=== PATIENT | female | born 1980 | race Caucasian/White ===

== ENCOUNTER 2018-03-01 10:30 | Emergency (ER) | payer OTHER ==
[2018-03-01 11:49] VITALS: BP 136/76
--- NOTE | 2018-03-01 12:22 | UC ---
Lower Extremity/Ankle HPI - HPI Summary HPI Summary: stubbed L 5th toe on shopping cart last tha, small cut on toe, no bruising, no trouble walking. needs Td vacc - History of Current Complaint Chief Complaint: UCLaceration Stated Complaint: CUT R PINK TOE Time Seen by Provider: 03/01/18 12:13 Hx Obtained From: Patient Hx Last Menstrual Period: February 2998 ?: No Onset/Duration: Sudden Onset Severity Initially: Moderate Severity Currently: Moderate Pain Intensity: 6 Aggravating Factor(s): Nothing Alleviating Factor(s): Nothing Able to Bear Weight: Yes - Allergies/Home Medications Allergies/Adverse Reactions: Allergies Allergy/AdvReac Type Severity Reaction Status Date / Time adhesive tape Allergy Intermediate Blisters Verified 03/01/18 11:51 amoxicillin Allergy Intermediate Hives Verified 03/01/18 11:51 cephalexin [From Keflex] Allergy Intermediate Hives Verified 03/01/18 11:51 hydromorphone Allergy Intermediate vomitting Verified 03/01/18 11:51 ibuprofen Allergy Intermediate migrains Verified 03/01/18 11:51 NSAIDS (Non-Steroidal Allergy Intermediate fatty liver Verified 03/01/18 11:51 Anti-Inflamma vancomycin Allergy Intermediate Hives Verified 03/01/18 11:51 Adhesive Tape Allergy Blisters Verified 07/09/16 10:09 Home Medications: Home Medications Dicyclomine CAP* [Bentyl CAP*] 10 mg PO TID PRN 03/01/18 [History Confirmed ] Divalproex Sodium [Depakote ER] 500 mg PO DAILY WITH MEAL 03/01/18 [History Confirmed 03/01/18] Folic Acid TAB* [Folvite TAB*] 1 mg PO DAILY 03/01/18 [History Confirmed ] Lurasidone(*) [Latuda] 20 mg PO DAILY 03/01/18 [History Confirmed 03/01/18] Methotrexate [Xatmep] 2.5 mg PO DAILY WITH MEAL 03/01/18 [History Confirmed ] Pedi Multivit 158/Iron/Vit K1 [Cerovite Jr Tablet Chew] 1 each PO DAILY WITH MEAL 03/01/18 [History Confirmed 03/01/18] Pyrithione Zinc [Zinc Pyrithione] 03/01/18 [History Confirmed 03/01/18] Sucralfate TAB* [Carafate*] 1 gm PO BID 03/01/18 [History Confirmed 03/01/18] metroNIDAZOLE [Metronidazole 0.75 % gel] 1 applic TOPICAL BID 03/01/18 [History Confirmed 03/01/18] PMH/Surg Hx/FS Hx/Imm Hx Previously Healthy: Yes GI/ History: Gastroesophageal Reflux Neurological History: Migraine - Surgical History Surgical History: Yes Surgery Procedure, Year, and Place: HYSTERECTOMY. SINUS. Rt BREAST BIOPSY - BENIGN. CHOLECYSTECTOMY. TUBAL LIGATION/UTERINE ABLASION PRIOR TO HYSTERECTOMY. bilateral hip replacement. sinus surgery - Family History Known Family History: Positive: Hypertension, Diabetes - Social History Occupation: Disabled Lives: With Family Alcohol Use: None Substance Use Type: None Smoking Status (MU): Former Smoker Type: Cigarettes Amount Used/How Often: Every couple weeks-months Household Exposure Type: Cigarettes - Immunization History Most Recent Influenza Vaccination: August 2015 Most Recent Tetanus Shot: 2006 Most Recent Pneumonia Vaccination: Unsure Review of Systems Constitutional: Negative Respiratory: Negative Cardiovascular: Negative Musculoskeletal: Negative Neurological: Negative Psychological: Negative All Other Systems Reviewed And Are Negative: Yes Physical Exam Triage Information Reviewed: Yes Appearance: Well-Appearing, Well-Nourished, Obese Vital Signs: Initial Vital Signs Temp 98.2 F 03/01/18 11:44 Pulse 76 03/01/18 11:44 Resp 20 03/01/18 11:44 BP 136/76 03/01/18 11:44 Pulse Ox 98 03/01/18 11:44 Vital Signs Reviewed: Yes Respiratory Exam: Normal Cardiovascular Exam: Normal Musculoskeletal Exam: Normal Musculoskeletal: Positive: Strength Intact, ROM Intact Neurological Exam: Normal Psychological Exam: Normal Skin Exam: Other - 4mm superficial lac distal L 5th toe, no bleeding, no bruising Lower Extremity Course/Dx - Differential Dx/Diagnosis Differential Diagnosis/HQI/PQRI: Contusion, Other - laceration Provider Diagnoses: small laceration L 5th toe Discharge - Sign-Out/Discharge Documenting (check all that apply): Patient Departure - Discharge Plan Condition: Good Disposition: HOME Patient Education Materials: Diphtheria/Pertussis/Tetanus Vaccine (By injection ), Laceration (DC) Referrals: Abdullahi Loaiza MD [Primary Care Provider] - 2 Days (if no better) Additional Instructions: ice and elevate foot. keep wound clean and dry and report signs of infection - Billing Disposition and Condition Condition: GOOD Disposition: Home
[2018-03-01] MEDS ORDERED: Tetan/Diph/Pertus SYR(Tdap)* 0.5 ML SYR(BOOSTRIX) use SYR IM ONE (12:26)
== END 2018-03-01 12:46 | disposition home or self-care (01) ==
LOC: UCEAST 10:30
DX: S91.115A Laceration without foreign body of left lesser toe(s) without damage to nail, initial encounter (principal); W22.8XXA Striking against or struck by other objects, initial encounter; Y93.89 Activity, other specified; Y92.9 Unspecified place or not applicable; Z88.6 Allergy status to analgesic agent; Z88.1 Allergy status to other antibiotic agents; Z88.5 Allergy status to narcotic agent; Z88.0 Allergy status to penicillin; Z87.891 Personal history of nicotine dependence
CPT/HCPCS: 90715; 99212; G0463

== ENCOUNTER 2018-04-07 16:53 | Emergency (ER) | payer OTHER ==
--- OUTSIDE RECORDS SUMMARY | 2018-04-07 16:59 | XMS REPORT ---
:1980 External Reference #:[id number] Author Organization [facility] Address [address] [address] [place] [address] Phone [phone] Care Team Providers Name Role Phone Abdullahi Loaiza MD Primary Care Physician Unavailable Payers Type Date Identification Numbers Payment Provider Subscriber Commercial Effective: Policy Number: [id number] Hayden Felicia Loyola 2016 Group Number: [id number] [address] PayID: [id number] [place] [address] Medigap Part B Expires: 2015 Policy Number: BS Facets Felicia Loyola [id number] PayID: [id number] [address] [address] [place] [address] Medigap Part B Effective: 2015 Policy Number: [id number] Medicaid Felicia Loyola Expires: 2016 Group Name: 1 1 [address] PayID: [id number] [place] [address] Workers Compensation Onset: 2015 Policy Number: Justo Felicia Loyola [id number] PayID: [id number] [address] [address] [place] [address] Problems Date Description Provider Status Onset: 02/03/2015 Seizure Valdez Bailey MD Active Onset: 02/03/2015 Bipolar disorder Valdez Bailey MD Active Onset: 03/01/2015 Refractory epilepsy Valdez Bailey MD Active Onset: 05/24/2015 Migraine without aura, not refractory Valdez Bailey MD Active Onset: 05/24/2015 Dissociative convulsions Valdez Bailey MD Active Onset: 02/13/2017 Neck pain Valdez Bailey MD Active Onset: 10/14/2016 Epilepsy, not refractory Valdez Bailey MD Active Onset: 07/08/2016 Localized, 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 Family History Date Family Member(s) Problem(s) Comments General Arthritis General maternal aunt and Mom have arthritis General son of cerebral palsy General cousin with lupus, cousin with Ra Social History Type Date Description Comments ETOH Use Denies alcohol use Smoking Patient is a former smoker Exercise Type/Frequency Exercises rarely Allergies, Adverse Reactions, Alerts Date Description Reaction Status Severity Comments 01/09/2015 Keflex Rash active Moderate to Severe 01/09/2015 Vancomycin Rash active Moderate to Severe 01/09/2015 Augmentin Rash active Moderate to Severe 01/09/2015 Ibuprofen Migraines active Moderate to Severe 01/09/2015 Adhesives Blisters active Moderate to Severe 01/09/2015 Dilaudid Nausea and Vomiting active 09/21/2015 Amoxicillin active hives 02/13/2017 NSAIDS active Medications Medication Date Status Form Strength Qnty SIG Indications Ordering Provider Cyclobenzaprine 03/09 Active Tablets 5mg take one Valdez tablet by darci Bailey MD 8 hours prn. may take a second tablet if first not effetive. Methotrexate 10/07 Active Tablets 2.5mg 72tab 6 tbs by M06.4 s mouth every , joon [employer] Depakote ER 09/08 Active Tablets ER 500mg 60tab 2 by mouth G43.009 24HR s at night MD Leo Folic Acid 01/10 Active Tablets 1mg 90tab 1 by mouth Z79.899 ofi s every day DAMI Leyva Vitamin D3 High 07/17 Active Capsules 1000Unit 180ca 2 by mouth E55.9 ps every day Jon Carty Cane 07/08 Active Misc 1unit medically M25.552 erin necessary - gunnar Hernandez hip oa Jon use as needed for ambulation Wrist Splint 03/14 Active Misc 2unit use daily G56.00 s to help marlon Carty M.D. numbness and tingling in the right and left hand Knee Brace 02/18 Active Misc 2unit use daily M70.52 s to help Machelle stabilize M.D. the knee (Please custom fit) Wrist Brace 12/05 Active Misc 2unit use for the G56.00 s right and Machelle, left wrist M.D. bilaterally at night for probable carpal tunnel syndrome Stocking 11/19 Active Misc apply to Dipak Applic /2015 help edema Machelle, Regular M.D. Lamotrigine ER Active Tablets ER 150mg 1/2 tab po Unknown 24HR qhs Albuterol Active Nebulizer (2.5mg/3M 1 vial via Unknown Sulfate L) 0.083% nebulizer 4 times daily as needed Trazodone HCL Active Tablets 50mg 2-3 tablet Unknown at bedtime as needed Estropipate Active Tablets 1.5mg 1 by mouth Unknown every day Bupropion HCL ER Active Tablets ER 300mg 1 by mouth Unknown (XL) 24HR every day Sumatriptan Active Tablets 100mg prn Wilver Succinate /0000 headaches , NAZIA Watts Advair Diskus Active Aerosol 100/50 1 Unknown / inhalation twice daily Ondansetron Active Tablets 4mg dissolve Unknown Dispers one tablet orally every 8 hours as needed for nausea. Lorazepam Active Tablets 0.5mg prn Unknown / Oxycodone-Acetam Active Tablets 5-325mg 1-2 tabs by Unknown inophen /0000 mouth every 4-6 hours as needed for pain Oyster Shell Active Tablets 500-400mg 180ta take one Zsofia Calcium + D3 0000 -Unit bs tablet by Gordon, mouth twice [employer] a day Acetaminophen Active Tablets 500mg 1-2 tabs 3x Unknown /0000 a day as needed Benzonatate Active Capsules 200mg one by Unknown /0000 mouth three times daily as needed for cough Metoprolol Active Tablets 25mg 1 by mouth Unknown Tartrate twice a day prn Sucralfate Active Tablets 1gm 1 by mouth Unknown /0000 two times a day Dicyclomine HCL Active Capsules 10mg one capsule Unknown / 3 times daily Latuda Active Tablets 20mg 1 by mouth Unknown /0000 every day Metronidazole Active Cream 0.75% apply two Unknown / times a day as needed for facial rash Cerovite Active Tablets Uriel, Lorna Formula / MD Lesly Gabapentin Active Capsules 300mg 1 by mouth Unknown 2X times a day Depakote 04/[address] 125mg 3 tabs in in the Leo, - morning and MD 04/07 4 tabs at Depakote ER 04/07 Hx Tablets ER 250mg 90tab take 3 G43.009 24HR s tablets by Leo, - mouth every MD 09/08 night. /2017 Methotrexate 03/11 Hx Tablets 2.5mg 30tab 4 tbs by M06.4 Zsofi s mouth every Gordon, - week [employer] 10/07 Depakote ER 02/26 Hx Tablets ER 250mg 90tab Take 3 24HR s tablets by Leo, - mouth every MD 04/07 night. /2016 Methotrexate 01/10 Hx Tablets 2.5mg 48tab 4 tbs by M06.4 Zsofia s mouth every Gordon, - week [employer] 03/11 Calcium Oyster 10/14 Hx Tablets 1250(500C 60tab 2 tabs po q Zsofia a) mg s day Gordon, - [employer] 01/10 Acetaminophen-Co 06/25 Hx Tablets 300-30mg 14tab 1 tab by M25.552 Zsofia deine #3 s mouth two Gordon, - times a day [employer] 10/14 as needed for pain Duloxetine HCL 04/[address] 30mg 30cap 1 by mouth Part s every day Machelle, - M.D. 05/02 Naltrexone HCL 04/08 Hx Powder 90uni 4.5 mg M79.7 ts compounded Machelle, - in capsules M.D. 04/22 by mouth every day Budesonide 03/06 Hx Suspension 1mg/2ML 6ml Use in J39.8 Zsofi nebulizer Gordon, - 2x daily [employer] 03/06 for 3 days Mucinex 03/06 Hx Tablets ER 600mg 30tab 1 tab po J39.8 12HR s bid Gordon, - [employer] 04/22 Calcium 500+D3 03/06 Hx Tablets 500-400mg 180ta 1 tab by E55.9 -Unit bs mouth twice Gordon, - a day [employer] 03/11 Pulmicort 03/06 Hx Aerosol 90mcg/Act 1unit 2 puff J39.8 s twice a day Machelle, - M.D. 04/22 Humira Pen 01/21 Hx PNKT 40mg/0.8M 4unit inject 40 M06.4 L s mg Gordon, - subcutaneou [employer] 09/06 sly every week Levsin 01/01 Hx Tablets 0.125mg 42tab Apply 1 SL M06.4 s every 8 Machelle, - hours as M.D. 01/01 needed GI spasms Levsin/SL 01/01 Hx Tablets Sub 0.125mg 60tab 1 tablet sl M06.4 s every 8 Machelle, - hours as M.D. 04/22 Sulfasalazine 11/16 Hx Tablets 500mg 90tab Take two M06.4 s tabs twice Machelle, - daily M.D. 01/21 Tizanidine HCL 11/05 Hx Capsules 2mg 60cap 1 cap by M79.7 s mouth twice Machelle, - a day M.D. 09/06 To Whom It May 11/05 Hx Due to a R60.0 Dipak Concern medical Machelle, - condition, M.D. 01/01 please allow Ms. Loyola to be off of work for the next 3 months Plaquenil 10/04 Hx Tablets 200mg 60tab 2 po at hs M06.4 s Machelle, - M.D. 11/16 Nabumetone 10/02 Hx Tablets 500mg 30tab Take one s capsule/tab Machelle, - let by M.D. 10/04 mouth twice daily as needed for pain, please stop Diclofenac and avoid other NSAIDs Ergocalciferol 09/27 Hx Capsules [id number] 14cap Take 1 s capsule by Machelle, - mouth once M.D. 12/05 Cyanocobalamin 09/27 Hx Solution 1000mcg/M 75ml inject 1 L milliliters Machelle, - (1000mcg) M.D. 07/17 Im once weekly; please provide appropriate needle and syringes for injection Diclofenac 09/[address] 75mg 30tab take one s capsule/tab Machelle - let by M.D. 10/02 mouth twice daily as needed for pain, avoid other nsaids Wellbutrin XL Hx Tablets ER 300mg 1 by mouth Unknown /0000 24HR every day - 01/[address] 60mg 2 by mouth Unknown /0000 Part every day - 12/31 Lamotrigine Hx Tablets 100mg 1 by mouth Unknown /0000 every day - 01/[address] 40mg 1 by mouth Unknown /0000 twiceevery - day 09/08 Estrogen 00 Hx 1.5mg 1 tab po Unknown /0000 daily - 11/05 Robaxin Hx Tablets 500mg 1 tab po Unknown /0000 tid prn - 09/21 Oxcarbazepine Hx Tablets 150mg 150ta 3 by mouth Valdez /0000 bs in am and 4 Leo, - in pm 05/11 Tramadol HCL 00 Hx Tablets 50mg 1 tab po Unknown /0000 tid prn - 01/09 Topiramate 00 Hx Tablets 100mg 1 by mouth Unknown /0000 daily - 03/01 [address]alta [address] 30mg 1 by mouth Unknown /0000 Part every day - in addition 11/05 ot 60mg /2015 Topiramate 00 Hx Caps 25mg 2 tabs po Unknown /0000 Sprinkle bid - 09/21 Celebrex Hx Capsules 200mg 1 by mouth Unknown /0000 every day - 11/30 Excedrin 00 Hx Tablets 250-250-6 po as Unknown Migraine /0000 5mg needed - 11/05 Albuterol 00/ Hx Powder puff every Unknown Sulfate /0000 6 hours as - needed 04/22 Celecoxib 00 Hx Capsules 200mg once daily Unknown /0000 - 09/27 Clonazepam 00/00 Hx Tablets 0.5mg 1 by mouth Unknown /0000 bid prn - 06/25 Oxycodone-Acetam 00 Hx Tablets 10-325mg take 1 Unknown inophen /0000 tablet by - mouth every 10/04 to hours as needed for pain Lyrica 00 Hx Capsules 75mg 1 by mouth Unknown /0000 twice a day - 12/05 Rizatriptan 00 Hx Tablets 10mg 1 by mouth Unknown Benzoate /0000 twice a day - as needed 10/11 max 2 days a week Sennosides-Docus 00 Hx Tablets 8.6-50mg 1 by mouth Unknown ate Sodium /0000 twice a day - 04/22 Vitamin D 00 Hx Tablets 1000Unit by mouth Unknown /0000 everyday - 11/05 Suboxone Hx Film 4-1mg bid managed Unknown /[address] Kelley - 01/01 Duloxetine HCL Hx Caps DR 20mg 20 mg day M79.7 Unknown /0000 Part - 10/11 Triamterene/Hydr Hx Capsules 37.5-25mg 1 by mouth Unknown ochlorothiazide /0000 every day - 12/05 Furosemide Hx Tablets 40mg 1 by mouth Unknown /0000 every day - 04/22 Nicotine Lozenge Hx use as Unknown /0000 directed - for smoking 10/11 Cyclobenzaprine 00 Hx Tablets 10mg one tablet Unknown HCL /0000 q hs - 03/09 Metoprolol 00 Hx Tablets 25mg 1 by mouth Unknown Tartrate /0000 twice a day - prn 04/06 Zinc 00/00 Hx Lozenges 23mg Unknown /0000 - 10/07 Ciprofloxacin 00/00 Hx Tablets 100mg Unknown HCL /0000 - 03/08 Medications Administered in Office Medication Date Status Form Strength Qnty SIG Indications Ordering Provider Triamcinolone 05/02/ Administered Injection Dipak WaldropKenalog) 2015 Jon Carty Triamcinolone 05/02/ Administered Injection Dipak (Kenalog) 2015 Jon Carty Triamcinolone 01/21/ Administered Injection Dipak (Kenalog) 2015 Jon Carty Immunizations CPT Code Status Date Vaccine Lot # [id number] Given 06/13/2017 Influenza Virus Vaccine, Quadrivalent, Split, [id number] Preservative Free Vital Signs Date Vital Result Comment 03/10/2018 Height 63 inches 5'3" Weight 222.12 lb Heart Rate 92 /min BP Systolic Sitting 118 mmHg BP Diastolic Sitting 76 mmHg Pain Level 6 O2 % BldC Oximetry 98 % BMI (Body Mass Index) 39.3 kg/m2 03/09/2018 Height 63 inches 5'3" Weight 218.00 lb Heart Rate 68 /min BP Systolic 120 mmHg BP Diastolic 64 mmHg BMI (Body Mass Index) 38.6 kg/m2 12/09/2017 Height 63 inches 5'3" Weight 232.00 lb Heart Rate 93 /min BP Systolic Sitting 118 mmHg BP Diastolic Sitting 72 mmHg Pain Level 7 O2 % BldC Oximetry 98 % BMI (Body Mass Index) 41.1 kg/m2 10/07/2017 Height 63 inches 5'3" Weight 230.00 lb Heart Rate 84 /min BP Systolic Sitting 120 mmHg BP Diastolic Sitting 64 mmHg Respiratory Rate 14 /min Pain Level 7 BMI (Body Mass Index) 40.7 kg/m2 09/08/2017 Height 63 inches 5'3" Weight 230.00 lb Heart Rate 78 /min BP Systolic Sitting 120 mmHg BP Diastolic Sitting 80 mmHg BMI (Body Mass Index) 40.7 kg/m2 06/13/2017 Weight 224.50 lb Heart Rate 100 /min BP Systolic Sitting 110 mmHg BP Diastolic Sitting 90 mmHg O2 % BldC Oximetry 99 % 04/07/2017 Height 63 inches 5'3" Weight 234.12 lb Heart Rate 64 /min BP Systolic 134 mmHg BP Diastolic 62 mmHg BMI (Body Mass Index) 41.5 kg/m2 03/11/2017 Height 63 inches 5'3" Weight 236.25 lb Heart Rate 109 /min BP Systolic Sitting 130 mmHg BP Diastolic Sitting 78 mmHg Body Temperature 97.5 F Pain Level 8 BMI (Body Mass Index) 41.8 kg/m2 02/13/2017 Height 63 inches 5'3" Weight 238.00 lb Heart Rate 86 /min BP Systolic 122 mmHg BP Diastolic 80 mmHg BMI (Body Mass Index) 42.2 kg/m2 01/10/2017 Height 63 inches 5'3" Weight 239.00 lb Heart Rate 86 /min BP Systolic Sitting 120 mmHg BP Diastolic Sitting 70 mmHg Respiratory Rate 14 /min Pain Level 7 BMI (Body Mass Index) 42.3 kg/m2 10/14/2016 Height 63 inches 5'3" Weight 249.00 lb Heart Rate 88 /min BP Systolic Sitting 130 mmHg BP Diastolic Sitting 90 mmHg BMI (Body Mass Index) 44.1 kg/m2 10/11/2016 Height 63 inches 5'3" Weight 244.00 lb Heart Rate 91 /min BP Systolic Sitting 130 mmHg BP Diastolic Sitting 81 mmHg Respiratory Rate 14 /min Body Temperature 97.0 F Pain Level 10 BMI (Body Mass Index) 43.2 kg/m2 09/06/2016 Height 63 inches 5'3" Weight 244.00 lb Heart Rate 96 /min BP Systolic Sitting 120 mmHg BP Diastolic Sitting 80 mmHg Respiratory Rate 14 /min Body Temperature 97.1 F Pain Level 9 BMI (Body Mass Index) 43.2 kg/m2 07/19/2016 Height 63 inches 5'3" Weight 240.38 lb Heart Rate 100 /min BP Systolic Sitting 140 mmHg BP Diastolic Sitting 94 mmHg Respiratory Rate 14 /min Body Temperature 96.5 F Pain Level 10 BMI (Body Mass Index) 42.6 kg/m2 07/15/2016 Height 63 inches 5'3" Weight 230.00 lb BP Systolic Sitting 138 mmHg BP Diastolic Sitting 96 mmHg Respiratory Rate 16 /min Pain Level 10 over ten per patient BMI (Body Mass Index) 40.7 kg/m2 07/08/2016 Height 63 inches 5'3" Weight 240.00 lb BP Systolic 132 mmHg BP Diastolic 82 mmHg Respiratory Rate 17 /min Body Temperature 97.8 F Pain Level 9 BMI (Body Mass Index) 42.5 kg/m2 06/25/2016 Height 63 inches 5'3" Weight 242.00 lb Heart Rate 90 /min BP Systolic Sitting 118 mmHg BP Diastolic Sitting 80 mmHg Body Temperature 98.2 F Pain Level 9 BMI (Body Mass Index) 42.9 kg/m2 05/02/2016 Height 63 inches 5'3" Heart Rate 88 /min BP Systolic Sitting 114 mmHg BP Diastolic Sitting 70 mmHg Respiratory Rate 14 /min Body Temperature 98.4 F Pain Level 10 04/22/2016 Height 63 inches 5'3" Weight 237.00 lb Heart Rate 84 /min BP Systolic Sitting 124 mmHg BP Diastolic Sitting 86 mmHg Respiratory Rate 14 /min Body Temperature 98.4 F Pain Level 8 BMI (Body Mass Index) 42.0 kg/m2 03/14/2016 Height 63 inches 5'3" Weight 232.25 lb Heart Rate 100 /min BP Systolic Sitting 134 mmHg BP Diastolic Sitting 100 mmHg Respiratory Rate 14 /min Body Temperature 98.1 F Pain Level 10 BMI (Body Mass Index) 41.1 kg/m2 03/06/2016 Height 63 inches 5'3" Weight 230.00 lb Heart Rate 118 /min BP Systolic Sitting 110 mmHg BP Diastolic Sitting 76 mmHg Respiratory Rate 20 /min Body Temperature 98.1 F O2 % BldC Oximetry 98 % BMI (Body Mass Index) 40.7 kg/m2 02/19/2016 Height 63 inches 5'3" Weight 226.12 lb Heart Rate 96 /min BP Systolic Sitting 118 mmHg BP Diastolic Sitting 70 mmHg Respiratory Rate 14 /min Body Temperature 98.6 F Pain Level 8 BMI (Body Mass Index) 40.1 kg/m2 01/22/2016 Height 63 inches 5'3" Weight 224.00 lb Heart Rate 76 /min BP Systolic Sitting 112 mmHg BP Diastolic Sitting 80 mmHg Respiratory Rate 14 /min Body Temperature 98.0 F Pain Level 10 BMI (Body Mass Index) 39.7 kg/m2 01/02/2016 Height 63 inches 5'3" Weight 227.00 lb Heart Rate 80 /min BP Systolic Sitting 118 mmHg BP Diastolic Sitting 80 mmHg Body Temperature 98.7 F Pain Level 8 BMI (Body Mass Index) 40.2 kg/m2 12/06/2015 Height 63 inches 5'3" Weight 246.00 lb Heart Rate 74 /min BP Systolic Sitting 128 mmHg BP Diastolic Sitting 80 mmHg Pain Level 8 BMI (Body Mass Index) 43.6 kg/m2 11/20/2015 Height 63 inches 5'3" Weight 252.00 lb Heart Rate 98 /min BP Systolic Sitting 122 mmHg BP Diastolic Sitting 86 mmHg Pain Level 9 BMI (Body Mass Index) 44.6 kg/m2 11/06/2015 Height 63 inches 5'3" Weight 245.00 lb Heart Rate 84 /min BP Systolic Sitting 130 mmHg BP Diastolic Sitting 70 mmHg Pain Level 8 BMI (Body Mass Index) 43.4 kg/m2 10/04/2015 Height 63 inches 5'3" Weight 225.50 lb Heart Rate 88 /min BP Systolic Sitting 132 mmHg BP Diastolic Sitting 80 mmHg Body Temperature 98.4 F Pain Level 10 BMI (Body Mass Index) 39.9 kg/m2 09/21/2015 Height 63 inches 5'3" Weight 227.25 lb Heart Rate 88 /min BP Systolic Sitting 116 mmHg BP Diastolic Sitting 78 mmHg Respiratory Rate 14 /min Pain Level 8 BMI (Body Mass Index) 40.3 kg/m2 05/24/2015 Height 63 inches 5'3" Weight 183.00 lb Heart Rate 76 /min BP Systolic Sitting 130 mmHg BP Diastolic Sitting 78 mmHg Respiratory Rate 16 /min BMI (Body Mass Index) 32.4 kg/m2 03/01/2015 Height 63 inches 5'3" Weight 193.00 lb Heart Rate 76 /min BP Systolic Sitting 116 mmHg BP Diastolic Sitting 78 mmHg Respiratory Rate 16 /min BMI (Body Mass Index) 34.2 kg/m2 02/03/2015 Height 63 inches 5'3" Weight 180.00 lb Heart Rate 76 /min BP Systolic Sitting 112 mmHg BP Diastolic Sitting 86 mmHg Respiratory Rate 16 /min BMI (Body Mass Index) 31.9 kg/m2 01/09/2015 Height 63 inches 5'3" Weight 180.00 lb Heart Rate 76 /min BP Systolic Sitting 118 mmHg BP Diastolic Sitting 86 mmHg Respiratory Rate 16 /min BMI (Body Mass Index) 31.9 kg/m2 Results Test Date Test Result H/L Range Note Laboratory test finding 02/10/2018 Erythrocyte Sed Rate 13 mm/Hr 0-14 1 Comp Metabolic Panel 02/10/2018 Sodium 140 mmol/L 135-145 Potassium 4.1 mmol/L 3.5-5.0 Chloride 103 mmol/L 101-111 Co2 Carbon Dioxide 27 mmol/L 22-32 Anion Gap 10 mmol/L 2-11 Glucose 93 mg/dL 70-100 Blood Urea Nitrogen 8 mg/dL 6-24 Creatinine 0.92 mg/dL 0.51-0.95 BUN/Creatinine Ratio 8.7 8-20 Calcium 9.3 mg/dL 8.6-10.3 Total Protein 6.8 g/dL 6.4-8.9 Albumin 4.2 g/dL 3.2-5.2 Globulin 2.6 g/dL 2-4 Albumin/Globulin Ratio 1.6 1-3 Total Bilirubin 0.20 mg/dL 0.2-1.0 Alkaline Phosphatase 69 U/L 34-104 Alt 31 U/L 7-52 Ast 23 U/L 13-39 Egfr Non- 68.7 >60 Egfr 83.1 >60 2 Laboratory test finding 02/10/2018 C Reactive Protein 5.93 mg/L <8.01 3 CBC Auto Diff 02/10/2018 White Blood Count 7.8 10^3/uL 3.5-10.8 Red Blood Count 4.59 10^6/uL 4.00-5.40 Hemoglobin 13.1 g/dL 12.0-16.0 Hematocrit 39 % 35-47 Mean Corpuscular Volume 85 fL 80-97 Mean Corpuscular Hemoglobin 29 pg 27-31 Mean Corpuscular HGB Conc 34 g/dL 31-36 Red Cell Distribution Width 15 % 10.5-15 Platelet Count 279 10^3/uL 150-450 Mean Platelet Volume 8.2 um3 7.4-10.4 Abs Neutrophils 3.8 10^3/uL 1.5-7.7 Abs Lymphocytes 3.2 10^3/uL 1.0-4.8 Abs Monocytes 0.5 10^3/uL 0-0.8 Abs Eosinophils 0.2 10^3/uL 0-0.6 Abs Basophils 0 10^3/uL 0-0.2 Abs Nucleated RBC 0 10^3/uL Granulocyte % 49.1 % 38-83 Lymphocyte % 40.4 % 25-47 Monocyte % 6.9 % 0-7 Eosinophil % 3.0 % 0-6 Basophil % 0.6 % 0-2 Nucleated Red Blood Cells % 0.1 Comp Metabolic Panel 12/09/2017 Sodium 136 mmol/L Low 139-145 Potassium 4.1 mmol/L 3.5-5.0 Chloride 101 mmol/L 101-111 Co2 Carbon Dioxide 24 mmol/L 22-32 Anion Gap 11 mmol/L 2-11 Glucose 91 mg/dL 70-100 Blood Urea Nitrogen 14 mg/dL 6-24 Creatinine 1.09 mg/dL High 0.51-0.95 BUN/Creatinine Ratio 12.8 8-20 Calcium 9.3 mg/dL 8.6-10.3 Total Protein 6.7 g/dL 6.4-8.9 Albumin 4.0 g/dL 3.2-5.2 Globulin 2.7 g/dL 2-4 Albumin/Globulin Ratio 1.5 1-3 Total Bilirubin 0.20 mg/dL 0.2-1.0 Alkaline Phosphatase 58 U/L 34-104 Alt 17 U/L 7-52 Ast 18 U/L 13-39 Egfr Non- 56.5 >60 Egfr 72.6 >60 4 Laboratory test finding 12/09/2017 C Reactive Protein 8.62 mg/L High < 5.00 5 Erythrocyte Sed Rate 9 mm/Hr 0-14 CBC Auto Diff 12/09/2017 White Blood Count 8.4 10^3/uL 3.5-10.8 Red Blood Count 4.48 10^6/uL 4.0-5.4 Hemoglobin 12.3 g/dL 12.0-16.0 Hematocrit 38 % 35-47 Mean Corpuscular Volume 84 fL 80-97 Mean Corpuscular Hemoglobin 28 pg 27-31 Mean Corpuscular HGB Conc 33 g/dL 31-36 Red Cell Distribution Width 16 % High 10.5-15 Platelet Count 278 10^3/uL 150-450 Mean Platelet Volume 8.2 um3 7.4-10.4 Abs Neutrophils 4.4 10^3/uL 1.5-7.7 Abs Lymphocytes 3.1 10^3/uL 1.0-4.8 Abs Monocytes 0.7 10^3/uL 0-0.8 Abs Eosinophils 0.2 10^3/uL 0-0.6 Abs Basophils 0.1 10^3/uL 0-0.2 Abs Nucleated RBC 0 10^3/uL Granulocyte % 52.3 % 38-83 Lymphocyte % 36.6 % 25-47 Monocyte % 8.0 % High 0-7 Eosinophil % 2.3 % 0-6 Basophil % 0.8 % 0-2 Nucleated Red Blood Cells % 0.1 Laboratory test finding 10/27/2017 Glucose 77 mg/dL 70-100 Vitamin D Total 25(Oh) 39.8 ng/mL 20-50 Hemoglobin A1c (Glyco HGB) 5.4 % 4.0-5.6 6 Lipid Profile (Trig/Chol/HDL) 10/27/2017 Triglycerides 307 mg/dL 7 Cholesterol 249 mg/dL 8 HDL Cholesterol 54.4 mg/dL 9 LDL Cholesterol 133 mg/dL 10 Laboratory test finding 10/27/2017 Ferritin 16.3 ng/mL 11-307 CBC No Diff 10/27/2017 White Blood Count 9.2 10^3/uL 3.5-10.8 Red Blood Count 4.80 10^6/uL 4.0-5.4 Hemoglobin 13.1 g/dL 12.0-16.0 Hematocrit 39 % 35-47 Mean Corpuscular Volume 82 fL 80-97 Mean Corpuscular Hemoglobin 27 pg 27-31 Mean Corpuscular HGB Conc 33 g/dL 31-36 Red Cell Distribution Width 16 % High 10.5-15 Platelet Count 269 10^3/uL 150-450 Mean Platelet Volume 8 um3 7.4-10.4 Comp Metabolic Panel 10/03/2017 Sodium 137 mmol/L 133-145 Potassium 4.8 mmol/L 3.5-5.0 Chloride 104 mmol/L 101-111 Co2 Carbon Dioxide 27 mmol/L 22-32 Anion Gap 6 mmol/L 2-11 Glucose 88 mg/dL 70-100 Blood Urea Nitrogen 13 mg/dL 6-24 Creatinine 0.93 mg/dL 0.51-0.95 BUN/Creatinine Ratio 14.0 8-20 Calcium 9.0 mg/dL 8.6-10.3 Total Protein 6.6 g/dL 6.4-8.9 Albumin 3.9 g/dL 3.2-5.2 Globulin 2.7 g/dL 2-4 Albumin/Globulin Ratio 1.4 1-3 Total Bilirubin 0.20 mg/dL 0.2-1.0 Alkaline Phosphatase 64 U/L 34-104 Alt 19 U/L 7-52 Ast 13 U/L 13-39 Egfr Non- 67.8 >60 Egfr 87.2 >60 11 Laboratory test finding 10/03/2017 C Reactive Protein 7.59 mg/L High < 5.00 12 CBC Auto Diff 10/03/2017 White Blood Count 7.0 10^3/uL 3.5-10.8 Red Blood Count 4.51 10^6/uL 4.0-5.4 Hemoglobin 12.2 g/dL 12.0-16.0 Hematocrit 37 % 35-47 Mean Corpuscular Volume 82 fL 80-97 Mean Corpuscular Hemoglobin 27 pg 27-31 Mean Corpuscular HGB Conc 33 g/dL 31-36 Red Cell Distribution Width 15 % 10.5-15 Platelet Count 241 10^3/uL 150-450 Mean Platelet Volume 8 um3 7.4-10.4 Abs Neutrophils 3.5 10^3/uL 1.5-7.7 Abs Lymphocytes 2.8 10^3/uL 1.0-4.8 Abs Monocytes 0.5 10^3/uL 0-0.8 Abs Eosinophils 0.3 10^3/uL 0-0.6 Abs Basophils 0.1 10^3/uL 0-0.2 Abs Nucleated RBC 0 10^3/uL Granulocyte % 49.4 % 38-83 Lymphocyte % 39.4 % 25-47 Monocyte % 6.8 % 0-7 Eosinophil % 3.6 % 0-6 Basophil % 0.8 % 0-2 Nucleated Red Blood Cells % 0.1 Laboratory test finding 10/03/2017 Erythrocyte Sed Rate 11 mm/Hr 0-14 13 CBC Auto Diff 08/06/2017 White Blood Count 9.6 10^3/uL 3.5-10.8 Red Blood Count 4.51 10^6/uL 4.0-5.4 Hemoglobin 12.1 g/dL 12.0-16.0 Hematocrit 36 % 35-47 Mean Corpuscular Volume 81 fL 80-97 Mean Corpuscular Hemoglobin 27 pg 27-31 Mean Corpuscular HGB Conc 33 g/dL 31-36 Red Cell Distribution Width 16 % High 10.5-15 Platelet Count 330 10^3/uL 150-450 Mean Platelet Volume 8 um3 7.4-10.4 Abs Neutrophils 5.0 10^3/uL 1.5-7.7 Abs Lymphocytes 3.5 10^3/uL 1.0-4.8 Abs Monocytes 0.7 10^3/uL 0-0.8 Abs Eosinophils 0.3 10^3/uL 0-0.6 Abs Basophils 0.1 10^3/uL 0-0.2 Abs Nucleated RBC 0.02 10^3/uL Granulocyte % 51.9 % 38-83 Lymphocyte % 37.0 % 25-47 Monocyte % 7.2 % 1-9 Eosinophil % 3.2 % 0-6 Basophil % 0.7 % 0-2 Nucleated Red Blood Cells % 0.2 Comp Metabolic Panel 08/06/2017 Sodium 135 mmol/L 133-145 Potassium 4.0 mmol/L 3.5-5.0 Chloride 100 mmol/L Low 101-111 Co2 Carbon Dioxide 28 mmol/L 22-32 Anion Gap 7 mmol/L 2-11 Glucose 77 mg/dL 70-100 Blood Urea Nitrogen 10 mg/dL 6-24 Creatinine 0.86 mg/dL 0.51-0.95 BUN/Creatinine Ratio 11.6 8-20 Calcium 9.3 mg/dL 8.6-10.3 Total Protein 6.7 g/dL 6.4-8.9 Albumin 4.1 g/dL 3.2-5.2 Globulin 2.6 g/dL 2-4 Albumin/Globulin Ratio 1.6 1-3 Total Bilirubin 0.20 mg/dL 0.2-1.0 Alkaline Phosphatase 88 U/L 34-104 Alt 15 U/L 7-52 Ast 11 U/L Low 13-39 Egfr Non- 74.2 >60 Egfr 95.5 >60 14 Laboratory test finding 08/06/2017 C Reactive Protein 5.79 mg/L High < 5.00 15 Erythrocyte Sed Rate 14 mm/Hr 0-14 Laboratory test finding 06/26/2017 C Reactive Protein 10.99 mg/L High < 5.00 16 Erythrocyte Sed Rate 18 mm/Hr High 0-14 CBC Auto Diff 06/26/2017 White Blood Count 8.7 10^3/uL 3.5-10.8 Red Blood Count 4.49 10^6/uL 4.0-5.4 Hemoglobin 11.7 g/dL Low 12.0-16.0 Hematocrit 36 % 35-47 Mean Corpuscular Volume 81 fL 80-97 Mean Corpuscular Hemoglobin 26 pg Low 27-31 Mean Corpuscular HGB Conc 32 g/dL 31-36 Red Cell Distribution Width 16 % High 10.5-15 Platelet Count 364 10^3/uL 150-450 Mean Platelet Volume 8 um3 7.4-10.4 Abs Neutrophils 5.1 10^3/uL 1.5-7.7 Abs Lymphocytes 2.7 10^3/uL 1.0-4.8 Abs Monocytes 0.6 10^3/uL 0-0.8 Abs Eosinophils 0.2 10^3/uL 0-0.6 Abs Basophils 0 10^3/uL 0-0.2 Abs Nucleated RBC 0.01 10^3/uL Granulocyte % 58.8 % 38-83 Lymphocyte % 31.3 % 25-47 Monocyte % 7.2 % 1-9 Eosinophil % 2.2 % 0-6 Basophil % 0.5 % 0-2 Nucleated Red Blood Cells % 0.1 Comp Metabolic Panel 06/26/2017 Sodium 137 mmol/L 133-145 Potassium 4.4 mmol/L 3.5-5.0 Chloride 103 mmol/L 101-111 Co2 Carbon Dioxide 26 mmol/L 22-32 Anion Gap 8 mmol/L 2-11 Glucose 75 mg/dL 70-100 Blood Urea Nitrogen 10 mg/dL 6-24 Creatinine 0.83 mg/dL 0.51-0.95 BUN/Creatinine Ratio 12.0 8-20 Calcium 9.2 mg/dL 8.6-10.3 Total Protein 6.6 g/dL 6.4-8.9 Albumin 4.1 g/dL 3.2-5.2 Globulin 2.5 g/dL 2-4 Albumin/Globulin Ratio 1.6 1-3 Total Bilirubin 0.20 mg/dL 0.2-1.0 Alkaline Phosphatase 98 U/L 34-104 Alt 15 U/L 7-52 Ast 13 U/L 13-39 Egfr Non- 77.4 >60 Egfr 99.5 >60 17 Laboratory test finding 06/26/2017 Valproic Acid 37.0 g/mL Low 50-100 (Depakene) Laboratory test finding 03/12/2017 C Reactive Protein 9.44 mg/L High < 5.00 18 Erythrocyte Sed Rate 21 mm/Hr High 0-14 Comp Metabolic Panel 03/12/2017 Sodium 139 mmol/L 133-145 Potassium 4.1 mmol/L 3.5-5.0 Chloride 104 mmol/L 101-111 Co2 Carbon Dioxide 28 mmol/L 22-32 Anion Gap 7 mmol/L 2-11 Glucose 109 mg/dL High 70-100 Blood Urea Nitrogen 8 mg/dL 6-24 Creatinine 0.84 mg/dL 0.51-0.95 BUN/Creatinine Ratio 9.5 8-20 Calcium 9.0 mg/dL 8.6-10.3 Total Protein 7.0 g/dL 6.4-8.9 Albumin 4.1 g/dL 3.2-5.2 Globulin 2.9 g/dL 2-4 Albumin/Globulin Ratio 1.4 1-3 Total Bilirubin 0.30 mg/dL 0.2-1.0 Alkaline Phosphatase 84 U/L 34-104 Alt 22 U/L 7-52 Ast 19 U/L 13-39 Egfr Non- 76.7 >60 Egfr 98.7 >60 19 CBC Auto Diff 03/12/2017 White Blood Count 11.8 10^3/uL High 3.5-10.8 Red Blood Count 4.87 10^6/uL 4.0-5.4 Hemoglobin 12.6 g/dL 12.0-16.0 Hematocrit 39 % 35-47 Mean Corpuscular Volume 80 fL 80-97 Mean Corpuscular Hemoglobin 26 pg Low 27-31 Mean Corpuscular HGB Conc 32 g/dL 31-36 Red Cell Distribution Width 17 % High 10.5-15 Platelet Count 287 10^3/uL 150-450 Mean Platelet Volume 8 um3 7.4-10.4 Abs Neutrophils 7.9 10^3/uL High 1.5-7.7 Abs Lymphocytes 2.9 10^3/uL 1.0-4.8 Abs Monocytes 0.7 10^3/uL 0-0.8 Abs Eosinophils 0.3 10^3/uL 0-0.6 Abs Basophils 0.1 10^3/uL 0-0.2 Abs Nucleated RBC 0 10^3/uL Granulocyte % 66.6 % 38-83 Lymphocyte % 24.8 % Low 25-47 Monocyte % 5.6 % 1-9 Eosinophil % 2.6 % 0-6 Basophil % 0.4 % 0-2 Nucleated Red Blood Cells % 0 Comp Metabolic Panel 12/31/2016 Sodium 135 mmol/L 133-145 Potassium 4.3 mmol/L 3.5-5.0 Chloride 102 mmol/L 101-111 Co2 Carbon Dioxide 27 mmol/L 22-32 Anion Gap 6 mmol/L 2-11 Glucose 93 mg/dL 70-100 Blood Urea Nitrogen 18 mg/dL 6-24 Creatinine 0.97 mg/dL High 0.51-0.95 BUN/Creatinine Ratio 18.6 8-20 Calcium 9.6 mg/dL 8.6-10.3 Total Protein 7.5 g/dL 6.4-8.9 Albumin 4.3 g/dL 3.2-5.2 Globulin 3.2 g/dL 2-4 Albumin/Globulin Ratio 1.3 1-3 Total Bilirubin 0.30 mg/dL 0.2-1.0 Alkaline Phosphatase 92 U/L 34-104 Alt 27 U/L 7-52 Ast 17 U/L 13-39 Egfr Non- 65.0 >60 Egfr 83.6 >60 20 Laboratory test finding 12/31/2016 C Reactive Protein 11.88 mg/L High < 5.00 21 CBC Auto Diff 12/31/2016 White Blood Count 10.2 10^3/uL 3.5-10.8 Red Blood Count 5.02 10^6/uL 4.0-5.4 Hemoglobin 12.4 g/dL 12.0-16.0 Hematocrit 39 % 35-47 Mean Corpuscular Volume 78 fL Low 80-97 Mean Corpuscular Hemoglobin 25 pg Low 27-31 Mean Corpuscular HGB Conc 32 g/dL 31-36 Red Cell Distribution Width 14 % 10.5-15 Platelet Count 295 10^3/uL 150-450 Mean Platelet Volume 8 um3 7.4-10.4 Abs Neutrophils 5.9 10^3/uL 1.5-7.7 Abs Lymphocytes 3.0 10^3/uL 1.0-4.8 Abs Monocytes 0.8 10^3/uL 0-0.8 Abs Eosinophils 0.3 10^3/uL 0-0.6 Abs Basophils 0.1 10^3/uL 0-0.2 Abs Nucleated RBC 0.01 10^3/uL Granulocyte % 58.2 % 38-83 Lymphocyte % 29.7 % 25-47 Monocyte % 8.3 % 1-9 Eosinophil % 2.8 % 0-6 Basophil % 1.0 % 0-2 Nucleated Red Blood Cells % 0.1 Laboratory test finding 12/31/2016 Erythrocyte Sed Rate 28 mm/Hr High 0- 14 22 Laboratory test finding 10/07/2016 C Reactive Protein 3.32 mg/L < 5.00 23 Erythrocyte Sed Rate 16 mm/Hr High 0-14 24 Comp Metabolic Panel 10/07/2016 Sodium 135 mmol/L 133-145 Potassium 4.2 mmol/L 3.5-5.0 Chloride 103 mmol/L 101-111 Co2 Carbon Dioxide 29 mmol/L 22-32 Anion Gap 3 mmol/L 2-11 Glucose 83 mg/dL 70-100 Blood Urea Nitrogen 10 mg/dL 6-24 Creatinine 0.87 mg/dL 0.51-0.95 BUN/Creatinine Ratio 11.5 8-20 Calcium 9.3 mg/dL 8.6-10.3 Total Protein 7.2 g/dL 6.4-8.9 Albumin 4.1 g/dL 3.2-5.2 Globulin 3.1 g/dL 2-4 Albumin/Globulin Ratio 1.3 1-3 Total Bilirubin 0.30 mg/dL 0.2-1.0 Alkaline Phosphatase 66 U/L 34-104 Alt 21 U/L 7-52 Ast 15 U/L 13-39 Egfr Non- 73.7 >60 Egfr 94.7 >60 25 CBC Auto Diff 10/07/2016 White Blood Count 9.7 10^3/uL 3.5-10.8 Red Blood Count 4.86 10^6/uL 4.0-5.4 Hemoglobin 13.0 g/dL 12.0-16.0 Hematocrit 39 % 35-47 Mean Corpuscular Volume 81 fL 80-97 Mean Corpuscular Hemoglobin 27 pg 27-31 Mean Corpuscular HGB Conc 33 g/dL 31-36 Red Cell Distribution Width 15 % 10.5-15 Platelet Count 341 10^3/uL 150-450 Mean Platelet Volume 8 um3 7.4-10.4 Abs Neutrophils 5.1 10^3/uL 1.5-7.7 Abs Lymphocytes 3.5 10^3/uL 1.0-4.8 Abs Monocytes 0.8 10^3/uL 0-0.8 Abs Eosinophils 0.2 10^3/uL 0-0.6 Abs Basophils 0.1 10^3/uL 0-0.2 Abs Nucleated RBC 0 10^3/uL Granulocyte % 52.2 % 38-83 Lymphocyte % 36.4 % 25-47 Monocyte % 8.3 % 1-9 Eosinophil % 2.5 % 0-6 Basophil % 0.6 % 0-2 Nucleated Red Blood Cells % 0.1 Laboratory test finding 09/02/2016 C Reactive Protein 8.19 mg/L High < 5.00 26 CBC Auto Diff 09/02/2016 White Blood Count 8.2 10^3/uL 3.5-10.8 Red Blood Count 4.72 10^6/uL 4.0-5.4 Hemoglobin 12.7 g/dL 12.0-16.0 Hematocrit 39 % 35-47 Mean Corpuscular Volume 83 fL 80-97 Mean Corpuscular Hemoglobin 27 pg 27-31 Mean Corpuscular HGB Conc 32 g/dL 31-36 Red Cell Distribution Width 16 % High 10.5-15 Platelet Count 252 10^3/uL 150-450 Mean Platelet Volume 8 um3 7.4-10.4 Abs Neutrophils 3.8 10^3/uL 1.5-7.7 Abs Lymphocytes 3.2 10^3/uL 1.0-4.8 Abs Monocytes 0.8 10^3/uL 0-0.8 Abs Eosinophils 0.3 10^3/uL 0-0.6 Abs Basophils 0 10^3/uL 0-0.2 Abs Nucleated RBC 0 10^3/uL Granulocyte % 46.9 % 38-83 Lymphocyte % 39.0 % 25-47 Monocyte % 9.6 % High 1-9 Eosinophil % 4.0 % 0-6 Basophil % 0.5 % 0-2 Nucleated Red Blood Cells % 0 Laboratory test finding 09/02/2016 Erythrocyte Sed Rate 13 mm/Hr 0-14 Comp Metabolic Panel 09/02/2016 Sodium 136 mmol/L 133-145 Potassium 4.1 mmol/L 3.5-5.0 Chloride 104 mmol/L 101-111 Co2 Carbon Dioxide 27 mmol/L 22-32 Anion Gap 5 mmol/L 2-11 Glucose 95 mg/dL 70-100 Blood Urea Nitrogen 12 mg/dL 6-24 Creatinine 0.99 mg/dL High 0.51-0.95 BUN/Creatinine Ratio 12.1 8-20 Calcium 8.8 mg/dL 8.6-10.3 Total Protein 6.6 g/dL 6.4-8.9 Albumin 4.0 g/dL 3.2-5.2 Globulin 2.6 g/dL 2-4 Albumin/Globulin Ratio 1.5 1-3 Total Bilirubin 0.30 mg/dL 0.2-1.0 Alkaline Phosphatase 69 U/L 34-104 Alt 25 U/L 7-52 Ast 17 U/L 13-39 Egfr Non- 63.5 >60 Egfr 81.6 >60 27 Laboratory test finding 07/16/2016 Vitamin B12 > 1450 pg/mL High 180-914 28 CBC Auto Diff 07/16/2016 White Blood Count 11.2 10^3/uL High 3.5-10.8 Red Blood Count 4.96 10^6/uL 4.0-5.4 Hemoglobin 13.3 g/dL 12.0-16.0 Hematocrit 40 % 35-47 Mean Corpuscular Volume 81 fL 80-97 Mean Corpuscular Hemoglobin 27 pg 27-31 Mean Corpuscular HGB Conc 33 g/dL 31-36 Red Cell Distribution Width 15 % 10.5-15 Platelet Count 340 10^3/uL 150-450 Mean Platelet Volume 8 um3 7.4-10.4 Abs Neutrophils 5.5 10^3/uL 1.5-7.7 Abs Lymphocytes 4.3 10^3/uL 1.0-4.8 Abs Monocytes 0.9 10^3/uL High 0-0.8 Abs Eosinophils 0.4 10^3/uL 0-0.6 Abs Basophils 0.1 10^3/uL 0-0.2 Abs Nucleated RBC 0.01 10^3/uL Granulocyte % 48.9 % 38-83 Lymphocyte % 38.6 % 25-47 Monocyte % 8.3 % 1-9 Eosinophil % 3.6 % 0-6 Basophil % 0.6 % 0-2 Nucleated Red Blood Cells % 0.1 Comp Metabolic Panel 07/16/2016 Sodium 137 mmol/L 133-145 Potassium 4.0 mmol/L 3.5-5.0 Chloride 102 mmol/L 101-111 Co2 Carbon Dioxide 27 mmol/L 22-32 Anion Gap 8 mmol/L 2-11 Glucose 87 mg/dL 70-100 Blood Urea Nitrogen 11 mg/dL 6-24 Creatinine 1.01 mg/dL High 0.51-0.95 BUN/Creatinine Ratio 10.9 8-20 Calcium 9.5 mg/dL 8.6-10.3 Total Protein 7.3 g/dL 6.4-8.9 Albumin 4.5 g/dL 3.2-5.2 Globulin 2.8 g/dL 2-4 Albumin/Globulin Ratio 1.6 1-3 Total Bilirubin 0.30 mg/dL 0.2-1.0 Alkaline Phosphatase 67 U/L 34-104 Alt 27 U/L 7-52 Ast 18 U/L 13-39 Egfr Non- 62.0 >60 Egfr 79.8 >60 29 Laboratory test finding 07/16/2016 C Reactive Protein 3.81 mg/L < 5.00 30 Erythrocyte Sed Rate 13 mm/Hr 0-14 31 Vitamin D Total 25(Oh) 24.7 ng/mL Low 30-50 Laboratory test finding 06/20/2016 C Reactive Protein 1.73 mg/L < 5.00 32 Erythrocyte Sed Rate 9 mm/Hr 0-14 CBC Auto Diff 06/20/2016 White Blood Count 16.9 10^3/uL High 3.5-10.8 Red Blood Count 4.90 10^6/uL 4.0-5.4 Hemoglobin 13.3 g/dL 12.0-16.0 Hematocrit 40 % 35-47 Mean Corpuscular Volume 82 fL 80-97 Mean Corpuscular Hemoglobin 27 pg 27-31 Mean Corpuscular HGB Conc 33 g/dL 31-36 Red Cell Distribution Width 14 % 10.5-15 Platelet Count 296 10^3/uL 150-450 Mean Platelet Volume 8 um3 7.4-10.4 Abs Neutrophils 8.6 10^3/uL High 1.5-7.7 Abs Lymphocytes 6.0 10^3/uL High 1.0-4.8 Abs Monocytes 1.7 10^3/uL High 0-0.8 Abs Eosinophils 0.5 10^3/uL 0-0.6 Abs Basophils 0.1 10^3/uL 0-0.2 Abs Nucleated RBC 0.01 10^3/uL Granulocyte % 50.8 % 38-83 Lymphocyte % 35.7 % 25-47 Monocyte % 10.0 % High 1-9 Eosinophil % 3.0 % 0-6 Basophil % 0.5 % 0-2 Nucleated Red Blood Cells % 0 Comp Metabolic Panel 06/20/2016 Sodium 136 mmol/L 133-145 Potassium 3.9 mmol/L 3.5-5.0 Chloride 102 mmol/L 101-111 Co2 Carbon Dioxide 26 mmol/L 22-32 Anion Gap 8 mmol/L 2-11 Glucose 97 mg/dL 70-100 Blood Urea Nitrogen 12 mg/dL 6-24 Creatinine 0.94 mg/dL 0.51-0.95 BUN/Creatinine Ratio 12.8 8-20 Calcium 9.4 mg/dL 8.6-10.3 Total Protein 6.5 g/dL 6.4-8.9 Albumin 4.1 g/dL 3.2-5.2 Globulin 2.4 g/dL 2-4 Albumin/Globulin Ratio 1.7 1-3 Total Bilirubin 0.30 mg/dL 0.2-1.0 Alkaline Phosphatase 61 U/L 34-104 Alt 24 U/L 7-52 Ast 12 U/L Low 13-39 Egfr Non- 67.4 >60 Egfr 86.7 >60 33 Comp Metabolic Panel 04/01/2016 Sodium 136 mmol/L 133-145 Potassium 4.2 mmol/L 3.5-5.0 Chloride 105 mmol/L 101-111 Co2 Carbon Dioxide 24 mmol/L 22-32 Anion Gap 7 mmol/L 2-11 Glucose 78 mg/dL 70-100 Blood Urea Nitrogen 14 mg/dL 6-24 Creatinine 0.93 mg/dL 0.51-0.95 BUN/Creatinine Ratio 15.1 8-20 Calcium 9.2 mg/dL 8.6-10.3 Total Protein 6.8 g/dL 6.4-8.9 Albumin 4.3 g/dL 3.2-5.2 Globulin 2.5 g/dL 2-4 Albumin/Globulin Ratio 1.7 1-3 Total Bilirubin 0.30 mg/dL 0.2-1.0 Alkaline Phosphatase 76 U/L 34-104 Alt 24 U/L 7-52 Ast 21 U/L 13-39 Egfr Non- 68.6 >60 Egfr 88.2 >60 34 Laboratory test finding 04/01/2016 C Reactive Protein 4.33 mg/L < 5.00 35 CBC Auto Diff 04/01/2016 White Blood Count 11.4 10^3/uL High 3.5-10.8 Red Blood Count 4.88 10^6/uL 4.0-5.4 Hemoglobin 13.0 g/dL 12.0-16.0 Hematocrit 40 % 35-47 Mean Corpuscular Volume 82 fL 80-97 Mean Corpuscular Hemoglobin 27 pg 27-31 Mean Corpuscular HGB Conc 33 g/dL 31-36 Red Cell Distribution Width 16 % High 10.5-15 Platelet Count 279 10^3/uL 150-450 Mean Platelet Volume 8 um3 7.4-10.4 Abs Neutrophils 5.5 10^3/uL 1.5-7.7 Abs Lymphocytes 4.4 10^3/uL 1.0-4.8 Abs Monocytes 1.0 10^3/uL High 0-0.8 Abs Eosinophils 0.3 10^3/uL 0-0.6 Abs Basophils 0.1 10^3/uL 0-0.2 Abs Nucleated RBC 0.01 10^3/uL Granulocyte % 48.7 % 38-83 Lymphocyte % 38.8 % 25-47 Monocyte % 9.0 % 1-9 Eosinophil % 3.0 % 0-6 Basophil % 0.5 % 0-2 Nucleated Red Blood Cells % 0.1 Laboratory test finding 04/01/2016 Erythrocyte Sed Rate 12 mm/Hr 0-14 CBC W/Auto Diff 02/14/2016 White Blood Count 9.2 10^3/uL 3.5-10.8 Red Blood Count 5.00 10^6/uL 4.0-5.4 Hemoglobin 13.1 g/dL 12.0-16.0 Hematocrit 40 % 35-47 Mean Corpuscular Volume 81 fL 80-97 Mean Corpuscular Hemoglobin 26 pg Low 27-31 Mean Corpuscular HGB Conc 32 g/dL 31-36 Red Cell Distribution Width 17 % High 10.5-15 Platelet Count 296 10^3/uL 150-450 Mean Platelet Volume 8 um3 7.4-10.4 Abs Neutrophils 4.7 10^3/uL 1.5-7.7 Abs Lymphocytes 3.4 10^3/uL 1.0-4.8 Abs Monocytes 0.8 10^3/uL 0-0.8 Abs Eosinophils 0.2 10^3/uL 0-0.6 Abs Basophils 0 10^3/uL 0-0.2 Abs Nucleated RBC 0.01 10^3/uL Granulocyte % 51.4 % 38-83 Lymphocyte % 37.5 % 25-47 Monocyte % 8.5 % 1-9 Eosinophil % 2.4 % 0-6 Basophil % 0.2 % 0-2 Nucleated Red Blood Cells % 0.1 CMP Panel 02/14/2016 Sodium 138 mmol/L 133-145 Potassium 4.2 mmol/L 3.5-5.0 Chloride 102 mmol/L 101-111 Co2 Carbon Dioxide 29 mmol/L 22-32 Anion Gap 7 mmol/L 2-11 Glucose 94 mg/dL 70-100 Blood Urea Nitrogen 12 mg/dL 6-24 Creatinine 0.99 mg/dL High 0.51-0.95 BUN/Creatinine Ratio 12.1 8-20 Calcium 9.1 mg/dL 8.6-10.3 Total Protein 7.1 g/dL 6.4-8.9 Albumin 4.4 g/dL 3.2-5.2 Globulin 2.7 g/dL 2-4 Albumin/Globulin Ratio 1.6 1-3 Total Bilirubin 0.30 mg/dL 0.2-1.0 Alkaline Phosphatase 85 U/L 34-104 Alt 16 U/L 7-52 Ast 15 U/L 13-39 Egfr Non- 63.8 >60 Egfr 82.1 >60 36 Laboratory test finding 02/14/2016 Erythrocyte Sed Rate 14 mm/Hr 0-14 C Reactive Protein 11.11 mg/L High < 5.00 37 Laboratory test finding 01/22/2016 Erythrocyte Sed Rate 9 mm/Hr 0-14 Basic Metabolic Panel 01/22/2016 Sodium 136 mmol/L 133-145 Potassium 3.8 mmol/L 3.5-5.0 Chloride 103 mmol/L 101-111 Co2 Carbon Dioxide 26 mmol/L 22-32 Anion Gap 7 mmol/L 2-11 Glucose 79 mg/dL 70-100 Blood Urea Nitrogen 10 mg/dL 6-24 Creatinine 0.92 mg/dL 0.51-0.95 BUN/Creatinine Ratio 10.9 8-20 Calcium 9.2 mg/dL 8.6-10.3 Egfr Non- 69.5 >60 Egfr 89.3 >60 38 Quantiferon Gold TB 01/22/2016 M tuberculosis by Quantiferon Negative Negative 39 Tuberculosis Antigen Value See Comment 40 Laboratory test finding 01/17/2016 Erythrocyte Sed Rate 10 mm/Hr 0-14 41 C Reactive Protein 6.76 mg/L High < 5.00 42 Comp Metabolic Panel 01/17/2016 Sodium 138 mmol/L 133-145 Potassium 4.5 mmol/L 3.5-5.0 Chloride 103 mmol/L 101-111 Co2 Carbon Dioxide 28 mmol/L 22-32 Anion Gap 7 mmol/L 2-11 Glucose 93 mg/dL 70-100 Blood Urea Nitrogen 13 mg/dL 6-24 Creatinine 1.06 mg/dL High 0.51-0.95 BUN/Creatinine Ratio 12.3 8-20 Calcium 9.8 mg/dL 8.6-10.3 Total Protein 7.6 g/dL 6.4-8.9 Albumin 5.0 g/dL 3.2-5.2 Globulin 2.6 g/dL 2-4 Albumin/Globulin Ratio 1.9 1-3 Total Bilirubin 0.30 mg/dL 0.2-1.0 Alkaline Phosphatase 81 U/L 34-104 Alt 14 U/L 7-52 Ast 14 U/L 13-39 Egfr Non- 59.0 >60 Egfr 75.9 >60 43 CBC Auto Diff 01/17/2016 White Blood Count 7.6 10^3/uL 3.5-10.8 Red Blood Count 5.17 10^6/uL 4.0-5.4 Hemoglobin 13.3 g/dL 12.0-16.0 Hematocrit 41 % 35-47 Mean Corpuscular Volume 79 fL Low 80-97 Mean Corpuscular Hemoglobin 26 pg Low 27-31 Mean Corpuscular HGB Conc 33 g/dL 31-36 Red Cell Distribution Width 16 % High 10.5-15 Platelet Count 311 10^3/uL 150-450 Mean Platelet Volume 8 um3 7.4-10.4 Abs Neutrophils 3.9 10^3/uL 1.5-7.7 Abs Lymphocytes 2.9 10^3/uL 1.0-4.8 Abs Monocytes 0.6 10^3/uL 0-0.8 Abs Eosinophils 0.2 10^3/uL 0-0.6 Abs Basophils 0 10^3/uL 0-0.2 Abs Nucleated RBC 0 10^3/uL Granulocyte % 51.3 % 38-83 Lymphocyte % 37.7 % 25-47 Monocyte % 7.9 % 1-9 Eosinophil % 2.6 % 0-6 Basophil % 0.5 % 0-2 Nucleated Red Blood Cells % 0 Comp Metabolic Panel 12/07/2015 Sodium 137 mmol/L 133-145 Potassium 4.0 mmol/L 3.5-5.0 Chloride 103 mmol/L 101-111 Co2 Carbon Dioxide 29 mmol/L 22-32 Anion Gap 5 mmol/L 2-11 Glucose 86 mg/dL 70-100 Blood Urea Nitrogen 10 mg/dL 6-24 Creatinine 0.98 mg/dL High 0.51-0.95 BUN/Creatinine Ratio 10.2 8-20 Calcium 9.1 mg/dL 8.6-10.3 Total Protein 6.5 g/dL 6.4-8.9 Albumin 4.1 g/dL 3.2-5.2 Globulin 2.4 g/dL 2-4 Albumin/Globulin Ratio 1.7 1-3 Total Bilirubin 0.30 mg/dL 0.2-1.0 Alkaline Phosphatase 79 U/L 34-104 Alt 21 U/L 7-52 Ast 24 U/L 13-39 Egfr Non- 64.6 >60 Egfr 83.1 >60 44 Laboratory test finding 11/09/2015 C Reactive Protein 10.54 mg/L High < 5.00 45 Erythrocyte Sed Rate 13 mm/Hr 0-14 46 Comp Metabolic Panel 11/09/2015 Sodium 136 mmol/L 133-145 Potassium 4.3 mmol/L 3.5-5.0 Chloride 102 mmol/L 101-111 Co2 Carbon Dioxide 28 mmol/L 22-32 Anion Gap 6 mmol/L 2-11 Glucose 82 mg/dL 70-100 Blood Urea Nitrogen 12 mg/dL 6-24 Creatinine 0.97 mg/dL High 0.51-0.95 BUN/Creatinine Ratio 12.4 8-20 Calcium 9.0 mg/dL 8.6-10.3 Total Protein 6.7 g/dL 6.4-8.9 Albumin 4.4 g/dL 3.2-5.2 Globulin 2.3 g/dL 2-4 Albumin/Globulin Ratio 1.9 1-3 Total Bilirubin 0.30 mg/dL 0.2-1.0 Alkaline Phosphatase 74 U/L 34-104 Alt 29 U/L 7-52 Ast 27 U/L 13-39 Egfr Non- 65.4 >60 Egfr 84.0 >60 47 CBC Auto Diff 11/09/2015 White Blood Count 9.0 10^3/uL 3.5-10.8 Red Blood Count 4.84 10^6/uL 4.0-5.4 Hemoglobin 12.7 g/dL 12.0-16.0 Hematocrit 40 % 35-47 Mean Corpuscular Volume 83 fL 80-97 Mean Corpuscular Hemoglobin 26 pg Low 27-31 Mean Corpuscular HGB Conc 32 g/dL 31-36 Red Cell Distribution Width 14 % 10.5-15 Platelet Count 278 10^3/uL 150-450 Mean Platelet Volume 8 um3 7.4-10.4 Abs Neutrophils 4.4 10^3/uL 1.5-7.7 Abs Lymphocytes 3.2 10^3/uL 1.0-4.8 Abs Monocytes 1.0 10^3/uL High 0-0.8 Abs Eosinophils 0.5 10^3/uL 0-0.6 Abs Basophils 0 10^3/uL 0-0.2 Abs Nucleated RBC 0 10^3/uL Granulocyte % 48.6 % 38-83 Lymphocyte % 35.1 % 25-47 Monocyte % 10.7 % High 1-9 Eosinophil % 5.1 % 0-6 Basophil % 0.5 % 0-2 Nucleated Red Blood Cells % 0 Laboratory test finding 11/09/2015 TSH (Thyroid Stim Horm) 2.24 ?IU/mL 0.34-5.60 48 Urinalysis Profile 11/09/2015 Urine Color Carolyn Urine Appearance Cloudy Urine Specific [place] 1.025 1.010-1.030 Urine pH 5.0 5-9 Urine Urobilinogen Negative Negative Urine Ketones Trace Negative Urine Protein Negative Negative Urine Leukocytes Negative Negative Urine Blood Negative Negative * * Negative 49 Urine Nitrite Negative Negative Urine Bilirubin Negative Negative Urine Glucose Negative Negative Laboratory test finding 09/21/2015 Angiotensin Converting Enzyme 25 U/L 8 - 53 50 Mona (Antinuclear Antibodies) Negative Negative C Reactive Protein 10.33 mg/L High < 5.00 51 Cyclic Citrullinated Pep Igg <15.6 U 52 Erythrocyte Sed Rate 31 mm/Hr High 0-14 Hla B27 09/21/2015 Hla B27 Negative 53 Hla B27 Interp See Comment 54 Laboratory test finding 09/21/2015 Uric Acid 5.1 mg/dL 2.3-6.6 Creatine Kinase(CK) 97 U/L 10-223 TSH (Thyroid Stim Horm) 1.18 ?IU/mL 0.34-5.60 Celiac Panel 09/21/2015 Tissue Transglutaminase IgA Ab <1.2 U/mL 55 Immunoglobulin A 136 mg/dL 61 - 356 Celiac Interpretation See Comment 56 Laboratory test finding 09/21/2015 Vitamin B12 152 pg/mL Low 180-914 57 Vitamin D 1,25 And Vitamin 09/21/2015 Vitamin D Total 25(Oh) 15.5 ng/mL Low 30-50 D,2 Vitamin D, 1,25 Dihydroxy 54 pg/mL 18-78 58 Neutrophil Cytoplasmic AB 09/21/2015 C-Anca Negative Negative P Anca Negative Negative Anca Reviewed By MD Ron Michaels <SEE NOTE> 59 Laboratory test finding 09/21/2015 Immunoglobulin G (Igg) 867 mg/dL 767 - 1590 60 Immunoglobulin M (Igm) 73 mg/dL 37 - 286 61 S.Pneumoniae Igg AB 23 09/21/2015 S. pneumoniae Type 1 IgG 0.9 g/mL >= 2.3 Serotyp AB S. pneumoniae Type 2 IgG AB 1.2 g/mL >=1.0 S. pneumoniae Type 3 IgG AB 1.3 g/mL >=1.8 S. pneumoniae Type 4 IgG AB 0.4 g/mL >=0.6 S. pneumoniae Type 5 IgG AB 1.5 g/mL >=10.7 S. pneumoniae Type 8 IgG AB 3.5 g/mL >=2.9 S. pneumoniae Type 9N IgG AB 1.0 g/mL >=9.2 S. pneumoniae Type 12F IgG AB <0.1 g/mL >=0.6 S. pneumoniae Type 14 IgG AB 2.0 g/mL >=7.0 S. pneumoniae Type 17F IgG AB 2.3 g/mL >=7.8 S. pneumoniae Type 19F IgG AB 5.2 g/mL >=15.0 S. pneumoniae Type 20 IgG AB 0.6 g/mL >=1.3 S. pneumoniae Type 22F IgG AB 6.9 g/mL >=7.2 S. pneumoniae Type 23F IgG AB 4.2 g/mL >=8.0 S. pneumoniae Type 6B IgG AB 1.3 g/mL >=4.7 S. pneumoniae Type 10A IgG AB 1.1 g/mL >=2.9 S. pneumoniae Type 11A IgG AB 0.3 g/mL >=2.4 S. pneumoniae Type 7F IgG AB 2.7 g/mL >=3.2 S. pneumoniae Type 15B IgG AB 1.4 g/mL >=3.3 S. pneumoniae Type 18C IgG AB 0.3 g/mL >=3.3 S. pneumoniae Type 19A IgG AB 2.3 g/mL >=17.1 S. pneumoniae Type 9V IgG AB 7.2 g/mL >=2.6 S. pneumoniae Type 33F IgG AB 0.5 g/mL >=1.7 62 Laboratory test finding 02/22/2015 Trileptal (Oxcarbazepine) 12 g/mL 3 - 35 63 Comp Metabolic Panel 02/22/2015 Sodium 139 mmol/L 133-145 Potassium 4.0 mmol/L 3.5-5.0 Chloride 110 mmol/L 101-111 Co2 Carbon Dioxide 26 mmol/L 22-32 Anion Gap 3 mmol/L 2-11 Glucose 83 mg/dL 70-100 Blood Urea Nitrogen 16 mg/dL 6-24 Creatinine 0.71 mg/dL 0.51-0.95 BUN/Creatinine Ratio 22.5 High 8-20 Calcium 8.8 mg/dL 8.6-10.3 Total Protein 6.7 g/dL 6.4-8.9 Albumin 4.3 g/dL 3.2-5.2 Globulin 2.4 g/dL 2-4 Albumin/Globulin Ratio 1.8 1-3 Total Bilirubin 0.30 mg/dL 0.2-1.0 Alkaline Phosphatase 94 U/L 34-104 Alt 17 U/L 7-52 Ast 16 U/L 13-39 Egfr Non- 94.2 >60 Egfr 121.2 >60 64 Laboratory test finding 02/22/2015 Topomax (Topiramate) 2.7 g/mL 2.0 - 20.0 65 Laboratory test finding 02/03/2015 Trileptal 6 g/mL 3 - 35 66 (Oxcarbazepine) Comp Metabolic Panel 02/03/2015 Sodium 139 mmol/L 133-145 Potassium 4.1 mmol/L 3.5-5.0 Chloride 109 mmol/L 101-111 Co2 Carbon Dioxide 24 mmol/L 22-32 Anion Gap 6 mmol/L 2-11 Glucose 87 mg/dL 70-100 Blood Urea Nitrogen 11 mg/dL 6-24 Creatinine 0.84 mg/dL 0.51-0.95 BUN/Creatinine Ratio 13.1 8-20 Calcium 8.9 mg/dL 8.6-10.3 Total Protein 6.7 g/dL 6.4-8.9 Albumin 4.2 g/dL 3.2-5.2 Globulin 2.5 g/dL 2-4 Albumin/Globulin Ratio 1.7 1-3 Total Bilirubin 0.30 mg/dL 0.2-1.0 Alkaline Phosphatase 87 U/L 34-104 Alt 23 U/L 7-52 Ast 18 U/L 13-39 Egfr Non- 77.6 >60 Egfr 99.8 >60 67 Laboratory test finding 02/01/2015 Trileptal (Oxcarbazepine) 8 g/mL 3 - 35 68 Sodium 139 mmol/L 133-145 1 STANDING ORDER ENTERED 12/10/17 EXPIRES 06/11/18 NON-FASTING 2 Because ethnic data is not always readily available, this report includes an eGFR for both -Americans and non- Americans. The National Kidney Disease Education Program (NKDEP) does not endorse the use of the MDRD equation for patients that are not between the ages of 18 and 70, are , have extremes of body size, muscle mass, or nutritional status, or are non- or non-. According to the [employer], irrespective of diagnosis, the stage of the disease is based on the level of kidney function: Stage Description GFR(mL/min/1.73 m(2)) 1 Kidney damage with normal or decreased GFR 90 2 Kidney damage with mild decrease in GFR 60-89 3 Moderate decrease in GFR 30-59 4 Severe decrease in GFR 15-29 5 Kidney failure <15 (or dialysis) 3 STANDING ORDER ENTERED 12/10/17 EXPIRES 06/11/18 NON-FASTING 4 Because ethnic data is not always readily available, this report includes an eGFR for both -Americans and non- Americans. The National Kidney Disease Education Program (NKDEP) does not endorse the use of the MDRD equation for patients that are not between the ages of 18 and 70, are , have extremes of body size, muscle mass, or nutritional status, or are non- or non-. According to the National [employer], irrespective of diagnosis, the stage of the disease is based on the level of kidney function: Stage Description GFR(mL/min/1.73 m(2)) 1 Kidney damage with normal or decreased GFR 90 2 Kidney damage with mild decrease in GFR 60-89 3 Moderate decrease in GFR 30-59 4 Severe decrease in GFR 15-29 5 Kidney failure <15 (or dialysis) 5 Acute inflammation: >10.00 6 Therapeutic target for the treatment of diabetes mellitus patients is <7% HBA1C, and in selective patients <6.0%. Please refer to [place] [employer] diabetic care guidelines for further information. 7 Desirable: <150 Borderline High: 150-199 High: 200-499 Very High: >500 8 Desirable: <200 Borderline High: 200-239 High: >239 9 Low: <40 Desirable: 40-60 High: >60 10 Desirable: <100 Near Optimal: 100-129 Borderline High: 130-159 High: 160-189 Very High: >189 11 Because ethnic data is not always readily available, this report includes an eGFR for both -Americans and non- Americans. The National Kidney Disease Education Program (NKDEP) does not endorse the use of the MDRD equation for patients that are not between the ages of 18 and 70, are , have extremes of body size, muscle mass, or nutritional status, or are non- or non-. According to the National [employer], irrespective of diagnosis, the stage of the disease is based on the level of kidney function: Stage Description GFR(mL/min/1.73 m(2)) 1 Kidney damage with normal or decreased GFR 90 2 Kidney damage with mild decrease in GFR 60-89 3 Moderate decrease in GFR 30-59 4 Severe decrease in GFR 15-29 5 Kidney failure <15 (or dialysis) 12 Acute inflammation: >10.00 13 STANDING ORDER ENTERED 06/28/17 EXPIRES 12/11/17 NON-FASTING CC: LEO CC: AWA 14 Because ethnic data is not always readily available, this report includes an eGFR for both -Americans and non- Americans. The National Kidney Disease Education Program (NKDEP) does not endorse the use of the MDRD equation for patients that are not between the ages of 18 and 70, are , have extremes of body size, muscle mass, or nutritional status, or are non- or non-. According to the National Kidney Foundation, irrespective of diagnosis, the stage of the disease is based on the level of kidney function: Stage Description GFR(mL/min/1.73 m(2)) 1 Kidney damage with normal or decreased GFR 90 2 Kidney damage with mild decrease in GFR 60-89 3 Moderate decrease in GFR 30-59 4 Severe decrease in GFR 15-29 5 Kidney failure <15 (or dialysis) 15 Acute inflammation: >10.00 16 Acute inflammation: >10.00 17 Because ethnic data is not always readily available, this report includes an eGFR for both -Americans and non- Americans. The National Kidney Disease Education Program (NKDEP) does not endorse the use of the MDRD equation for patients that are not between the ages of 18 and 70, are , have extremes of body size, muscle mass, or nutritional status, or are non- or non-. According to the National Kidney Foundation, irrespective of diagnosis, the stage of the disease is based on the level of kidney function: Stage Description GFR(mL/min/1.73 m(2)) 1 Kidney damage with normal or decreased GFR 90 2 Kidney damage with mild decrease in GFR 60-89 3 Moderate decrease in GFR 30-59 4 Severe decrease in GFR 15-29 5 Kidney failure <15 (or dialysis) 18 Acute inflammation: >10.00 19 Because ethnic data is not always readily available, this report includes an eGFR for both -Americans and non- Americans. The National Kidney Disease Education Program (NKDEP) does not endorse the use of the MDRD equation for patients that are not between the ages of 18 and 70, are , have extremes of body size, muscle mass, or nutritional status, or are non- or non-. According to the National Kidney Foundation, irrespective of diagnosis, the stage of the disease is based on the level of kidney function: Stage Description GFR(mL/min/1.73 m(2)) 1 Kidney damage with normal or decreased GFR 90 2 Kidney damage with mild decrease in GFR 60-89 3 Moderate decrease in GFR 30-59 4 Severe decrease in GFR 15-29 5 Kidney failure <15 (or dialysis) 20 Because ethnic data is not always readily available, this report includes an eGFR for both -Americans and non- Americans. The National Kidney Disease Education Program (NKDEP) does not endorse the use of the MDRD equation for patients that are not between the ages of 18 and 70, are , have extremes of body size, muscle mass, or nutritional status, or are non- or non-. According to the National Kidney Foundation, irrespective of diagnosis, the stage of the disease is based on the level of kidney function: Stage Description GFR(mL/min/1.73 m(2)) 1 Kidney damage with normal or decreased GFR 90 2 Kidney damage with mild decrease in GFR 60-89 3 Moderate decrease in GFR 30-59 4 Severe decrease in GFR 15-29 5 Kidney failure <15 (or dialysis) 21 Acute inflammation: >10.00 22 S/O ENTERED 10/10/16 EXPIRES ON 03/12/17 23 Acute inflammation: >10.00 24 standing order 25 Because ethnic data is not always readily available, this report includes an eGFR for both -Americans and non- Americans. The National Kidney Disease Education Program (NKDEP) does not endorse the use of the MDRD equation for patients that are not between the ages of 18 and 70, are , have extremes of body size, muscle mass, or nutritional status, or are non- or non-. According to the National Kidney Foundation, irrespective of diagnosis, the stage of the disease is based on the level of kidney function: Stage Description GFR(mL/min/1.73 m(2)) 1 Kidney damage with normal or decreased GFR 90 2 Kidney damage with mild decrease in GFR 60-89 3 Moderate decrease in GFR 30-59 4 Severe decrease in GFR 15-29 5 Kidney failure <15 (or dialysis) 26 Acute inflammation: >10.00 27 Because ethnic data is not always readily available, this report includes an eGFR for both -Americans and non- Americans. The National Kidney Disease Education Program (NKDEP) does not endorse the use of the MDRD equation for patients that are not between the ages of 18 and 70, are , have extremes of body size, muscle mass, or nutritional status, or are non- or non-. According to the National Kidney Foundation, irrespective of diagnosis, the stage of the disease is based on the level of kidney function: Stage Description GFR(mL/min/1.73 m(2)) 1 Kidney damage with normal or decreased GFR 90 2 Kidney damage with mild decrease in GFR 60-89 3 Moderate decrease in GFR 30-59 4 Severe decrease in GFR 15-29 5 Kidney failure <15 (or dialysis) 28 Normal Range 180 to 914 Indeterminate Range 145 to 180 Deficient Range <145 29 Because ethnic data is not always readily available, this report includes an eGFR for both -Americans and non- Americans. The National Kidney Disease Education Program (NKDEP) does not endorse the use of the MDRD equation for patients that are not between the ages of 18 and 70, are , have extremes of body size, muscle mass, or nutritional status, or are non- or non-. According to the National Kidney Foundation, irrespective of diagnosis, the stage of the disease is based on the level of kidney function: Stage Description GFR(mL/min/1.73 m(2)) 1 Kidney damage with normal or decreased GFR 90 2 Kidney damage with mild decrease in GFR 60-89 3 Moderate decrease in GFR 30-59 4 Severe decrease in GFR 15-29 5 Kidney failure <15 (or dialysis) 30 Acute inflammation: >10.00 31 standing order 32 Acute inflammation: >10.00 33 Because ethnic data is not always readily available, this report includes an eGFR for both -Americans and non- Americans. The National Kidney Disease Education Program (NKDEP) does not endorse the use of the MDRD equation for patients that are not between the ages of 18 and 70, are , have extremes of body size, muscle mass, or nutritional status, or are non- or non-. According to the National Kidney Foundation, irrespective of diagnosis, the stage of the disease is based on the level of kidney function: Stage Description GFR(mL/min/1.73 m(2)) 1 Kidney damage with normal or decreased GFR 90 2 Kidney damage with mild decrease in GFR 60-89 3 Moderate decrease in GFR 30-59 4 Severe decrease in GFR 15-29 5 Kidney failure <15 (or dialysis) 34 Because ethnic data is not always readily available, this report includes an eGFR for both -Americans and non- Americans. The National Kidney Disease Education Program (NKDEP) does not endorse the use of the MDRD equation for patients that are not between the ages of 18 and 70, are , have extremes of body size, muscle mass, or nutritional status, or are non- or non-. According to the National Kidney Foundation, irrespective of diagnosis, the stage of the disease is based on the level of kidney function: Stage Description GFR(mL/min/1.73 m(2)) 1 Kidney damage with normal or decreased GFR 90 2 Kidney damage with mild decrease in GFR 60-89 3 Moderate decrease in GFR 30-59 4 Severe decrease in GFR 15-29 5 Kidney failure <15 (or dialysis) 35 Acute inflammation: >10.00 36 Because ethnic data is not always readily available, this report includes an eGFR for both -Americans and non- Americans. The National Kidney Disease Education Program (NKDEP) does not endorse the use of the MDRD equation for patients that are not between the ages of 18 and 70, are , have extremes of body size, muscle mass, or nutritional status, or are non- or non-. According to the National Kidney Foundation, irrespective of diagnosis, the stage of the disease is based on the level of kidney function: Stage Description GFR(mL/min/1.73 m(2)) 1 Kidney damage with normal or decreased GFR 90 2 Kidney damage with mild decrease in GFR 60-89 3 Moderate decrease in GFR 30-59 4 Severe decrease in GFR 15-29 5 Kidney failure <15 (or dialysis) 37 Acute inflammation: >10.00 38 Because ethnic data is not always readily available, this report includes an eGFR for both -Americans and non- Americans. The National Kidney Disease Education Program (NKDEP) does not endorse the use of the MDRD equation for patients that are not between the ages of 18 and 70, are , have extremes of body size, muscle mass, or nutritional status, or are non- or non-. According to the National Kidney Foundation, irrespective of diagnosis, the stage of the disease is based on the level of kidney function: Stage Description GFR(mL/min/1.73 m(2)) 1 Kidney damage with normal or decreased GFR 90 2 Kidney damage with mild decrease in GFR 60-89 3 Moderate decrease in GFR 30-59 4 Severe decrease in GFR 15-29 5 Kidney failure <15 (or dialysis) 39 No interferon-gamma response to M. tuberculosis antigens was detected. Infection with M. tuberculosis is unlikely. A negative result alone does not exclude infection with M. tuberculosis. For detailed information regarding test interpretation see: [email or web address].[email or web address]/test-catalog/ Clinical+and+Interpretive/79635 40 TB Ag minus Nil Result: 0.00 IU/m Mitogen minus Nil Result: 13.31 IU/mL Nil Result: 0.05 IU/mL Test Performed by: [place] [id number] Meat Washer: Jose Lock II, M.D., Ph.D. 41 STANDING ORDER VALID 12/08/15-06/08/16 Q 6 WEEKS NON-FASTING 42 Acute inflammation: >10.00 43 Because ethnic data is not always readily available, this report includes an eGFR for both -Americans and non- Americans. The National Kidney Disease Education Program (NKDEP) does not endorse the use of the MDRD equation for patients that are not between the ages of 18 and 70, are , have extremes of body size, muscle mass, or nutritional status, or are non- or non-. According to the National Kidney Foundation, irrespective of diagnosis, the stage of the disease is based on the level of kidney function: Stage Description GFR(mL/min/1.73 m(2)) 1 Kidney damage with normal or decreased GFR 90 2 Kidney damage with mild decrease in GFR 60-89 3 Moderate decrease in GFR 30-59 4 Severe decrease in GFR 15-29 5 Kidney failure <15 (or dialysis) 44 Because ethnic data is not always readily available, this report includes an eGFR for both -Americans and non- Americans. The National Kidney Disease Education Program (NKDEP) does not endorse the use of the MDRD equation for patients that are not between the ages of 18 and 70, are , have extremes of body size, muscle mass, or nutritional status, or are non- or non-. According to the National Kidney Foundation, irrespective of diagnosis, the stage of the disease is based on the level of kidney function: Stage Description GFR(mL/min/1.73 m(2)) 1 Kidney damage with normal or decreased GFR 90 2 Kidney damage with mild decrease in GFR 60-89 3 Moderate decrease in GFR 30-59 4 Severe decrease in GFR 15-29 5 Kidney failure <15 (or dialysis) 45 Acute inflammation: >10.00 46 this week please 47 Because ethnic data is not always readily available, this report includes an eGFR for both -Americans and non- Americans. The National Kidney Disease Education Program (NKDEP) does not endorse the use of the MDRD equation for patients that are not between the ages of 18 and 70, are , have extremes of body size, muscle mass, or nutritional status, or are non- or non-. According to the National Kidney Foundation, irrespective of diagnosis, the stage of the disease is based on the level of kidney function: Stage Description GFR(mL/min/1.73 m(2)) 1 Kidney damage with normal or decreased GFR 90 2 Kidney damage with mild decrease in GFR 60-89 3 Moderate decrease in GFR 30-59 4 Severe decrease in GFR 15-29 5 Kidney failure <15 (or dialysis) 48 this week please 49 *Ascorbic acid is present which may interfere with detection of blood. 50 Test Performed by: [place] [address] Meat Washer: Jose Lock II, M.D., Ph.D. 51 Acute inflammation: >10.00 52 REFERENCE VALUE <20.0 (Negative) Test Performed by: [place] [address] Meat Washer: Jose Lock II, M.D., Ph.D. 53 REFERENCE VALUE Not Applicable 54 RESULT: HLA-B27 antigen was not detected. ADDITIONAL INFORMATION Method: Flow Cytometry Performing Laboratory CLIA# [id number] Test Performed by: [place] [address] Meat Washer: Jose Lock II, M.D., Ph.D. 55 REFERENCE VALUE <4.0 (Negative) Test Performed by: [place] [address] Meat Washer: Jose Lock II, M.D., Ph.D. 56 Negative serology. Celiac disease unlikely. However, approximately 10% of patients with celiac disease are seronegative. Also, patients who are already adhering to a gluten-free diet may be seronegative. If celiac disease is highly clinically suspected, consider HLA-DQ typing. Test Performed by: [place] [address] Meat Washer: Jose Lock II, M.D., Ph.D. 57 Normal Range 180 to 914 Indeterminate Range 145 to 180 Deficient Range <145 58 Test Performed by: [place] [address] Meat Washer: Jose Lock II, M.D., Ph.D. 59 Ron Garcia 60 Test Performed by: [place] [address] Meat Washer: Jose Lock II, M.D., Ph.D. 61 Test Performed by: [place] [address] Meat Washer: Jose Lock II, M.D., Ph.D. 62 Either of the two following conditions would be consistent with a normal response to Streptococcus pneumoniae vaccination: Antibody concentrations greater than or equal to the reference value for at least 50% of serotypes in either a pre- or post-vaccination sample. Antibody concentrations increased by 2-fold or greater for at least 50% of serotypes when comparing the pre- to the post-vaccination results. Optimal cut-offs (reference values) were derived by measuring serotype-specific IgG antibody levels in an adult cohort of 100 healthy individuals (previously unvaccinated) before and after pneumococcal vaccination and identifying the antibody level for each serotype that included the largest number of individuals with a negative response (below cut-off) pre-vaccination and a positive response (above cut-off) post-vaccination. ADDITIONAL INFORMATION All 23 serotypes assessed by this assay are included in the Pneumovax 23 vaccine. IgG antibody concentrations following Pneumovax 23 administration are a reflection of an individual's humoral immune response to polysaccharide antigens. Serotypes 1, 3, 4, 5, 6A (6), 14, 19F (19), 23F (23), 6B (26), 7F (51), 18C (56), 19A (57) and 9V (68) are included in the Prevnar-13 conjugate vaccine. Antibody concentrations following Prevnar-13 administration are a reflection of an individual's response to protein-conjugated antigens. Serotypes 2, 8, 9N (9), 12F (12), 17F (17), 20, 22F (22), 10A (34), 11A (43), 15B (54) and 33F (70) are present only in the Pneumovax 23 vaccine and not in Prevnar-13. Responses to these 11 serotypes are a reflection of an individual's response to polysaccharide antigens. Serotype 6A is only present in Prevnar-13. Test Performed by: [place] [address] Meat Washer: Jose Lock II, M.D., Ph.D. 63 Test Performed by: [place] [address] Meat Washer: Jose Lock II, M.D., Ph.D. 64 Because ethnic data is not always readily available, this report includes an eGFR for both -Americans and non- Americans. The National Kidney Disease Education Program (NKDEP) does not endorse the use of the MDRD equation for patients that are not between the ages of 18 and 70, are , have extremes of body size, muscle mass, or nutritional status, or are non- or non-. According to the National Kidney Foundation, irrespective of diagnosis, the stage of the disease is based on the level of kidney function: Stage Description GFR(mL/min/1.73 m(2)) 1 Kidney damage with normal or decreased GFR 90 2 Kidney damage with mild decrease in GFR 60-89 3 Moderate decrease in GFR 30-59 4 Severe decrease in GFR 15-29 5 Kidney failure <15 (or dialysis) 65 Test Performed by: [place] [address] Meat Washer: Jose Lock II, M.D., Ph.D. 66 Test Performed by: [address] [address] Meat Washer: Jose Lock II, M.D., Ph.D. 67 Because ethnic data is not always readily available, this report includes an eGFR for both -Americans and non- Americans. The National Kidney Disease Education Program (NKDEP) does not endorse the use of the MDRD equation for patients that are not between the ages of 18 and 70, are , have extremes of body size, muscle mass, or nutritional status, or are non- or non-. According to the National Kidney Foundation, irrespective of diagnosis, the stage of the disease is based on the level of kidney function: Stage Description GFR(mL/min/1.73 m(2)) 1 Kidney damage with normal or decreased GFR 90 2 Kidney damage with mild decrease in GFR 60-89 3 Moderate decrease in GFR 30-59 4 Severe decrease in GFR 15-29 5 Kidney failure <15 (or dialysis) 68 Test Performed by: [address] [address] Meat Washer: Jose Lock II, M.D., Ph.D. Procedures Date CPT Code Description Status 05/02/2016 Inject/Drain Joint/Bursa Major W/O US Completed 05/02/2016 Inject/Drain Joint/Bursa Major W/O US Completed 02/27/2016 85356 Nerve Conduction 07-08 Studies Completed 02/27/2016 27529 Needle Electromyography Complete, Five Or More Muscles Completed Studied 01/22/2016 98527 Admin Of Inj Completed 02/22/2015 20586 EEG Recording Awake & Drowsy Completed 11/25/2014 14859 EEG Recording In Coma Or Sleep Only Completed 11/25/2014 70633 EKG, Interpretation Only Completed Encounters Type Date Location Provider CPT E/M Dx Office Visit 12/09/2017 [facility] DAMI Stallworth 51749 M06.4 1:00p Of Proofsheet Corrector M79.7 Z79.899 E66.9 Office Visit 10/07/2017 2:00p [facility] Of Janet Leyva, [employer] 24143 M06.4 Proofsheet Corrector M79.7 Z79.899 Office Visit 09/08/2017 1:45p [facility] Valdez Bailey, 28493 G43.009 MD Office Visit 06/13/2017 2:00p [facility] 85229 [facility] M16[facility]31 Z79.899 Z23 Office Visit 04/07/2017 9:30a [facility] Valdez Bailey, 10557 G43.009 MD Z79.899 Office Visit 03/11/2017 2:30p [facility] Of DAMI Stallworth 17925 M06.4 Proofsheet Corrector M54.2 M16.31 M25.569 Z79.899 Office Visit 02/13/2017 2:15p [facility] Valdez Bailey, 76374 G43.009 MD M54.2 Office Visit 01/10/2017 9:30a [facility] Of Janet Leyva, [employer] 25563 M06.4 Proofsheet Corrector Z79.899 M79.7 Z02.71 Office Visit 10/14/2016 2:30p [facility] Valdez Leo, 75556 G43.009 G40.509 Z79.899 Office Visit 10/11/2016 1:30p [facility] Of DAMI Stallworth 00065 M79.7 Proofsheet Corrector M54.2 M16.2 M06.4 Z79.899 Office Visit 09/06/2016 2:30p [facility] Of Janet Leyva, [employer] 44003 M06.4 Proofsheet Corrector M16.2 M79.7 Z79.899 Office Visit 07/19/2016 3:00p [facility] Of Janet Leyva, [employer] 57744 M16.2 Proofsheet Corrector M25.562 M79.7 E55.9 Office Visit 07/15/2016 10:45a [facility] Of Polina Hernandez M.D. 57274 M25.552 C.M.AJermain M25.551 M16.11 M16.12 M25.562 M79.7 M70.62 M22.2x2 Office Visit 07/08/2016 9:00a [facility] Of Polina Hernandez M.D. 66042 M25.552 C.M.A. M25.551 M25.562 M25.462 M16.11 M16.12 M79.7 M70.62 G56.03 Office Visit 06/25/2016 1:30p [facility] Of Janet Leyva, [employer] 59354 M06.4 Proofsheet Corrector M79.7 K76.0 M25.552 M25.562 E55.9 D51.9 Z79.899 Office Visit 05/02/2016 4:00p [facility] Dipak Machelle, 31968 M70.52 Of Abel Webb M70.62 Office Visit 04/22/2016 2:40p [facility] Of Dipak Carty, 51736 M79.7 Abel M.DJermain M06.4 M54.2 K76.0 Z79.899 Office Visit 03/14/2016 3:40p [facility] Of Dipak Carty, 30359 M79.7 Abel M.DJermain M06.4 M54.2 G56.00 K76.0 Office Visit 03/06/2016 1:30p [facility] Of Janet Leyva, [facility] 37057 J39.8 Proofsheet Corrector R05 E55.9 Office Visit 02/19/2016 2:20p [facility] Of Dipak Carty 09364 M06.4 Abel Chang.DJermain M79.7 M70.52 R23.1 N18.9 Office Visit 01/22/2016 1:40p [facility] Of Dipak Carty, 45622 M06.4 Abel M.DJermain M79.7 Z79.899 K58.0 M54.2 Office Visit 01/02/2016 9:00a [facility] Of Dipak Carty, 59091 M06.4 Abel M.DJermain M79.7 Z79.899 K58.0 Office Visit 12/06/2015 1:20p [facility] Of Dipak Carty 95149 M06.4 Abel M.DJermain M79.7 Z79.899 R20.8 M85.88 Office Visit 11/20/2015 10:40a [facility] Of Dipak Carty, 37898 M06.4 Abel M.DJermain M79.7 Z79.899 Office Visit 11/06/2015 2:40p [facility] Of Dipak Carty, 18275 M06.4 Proofsheet Corrector M.DJermain M79.1 Z79.899 R60.0 Office Visit 10/04/2015 8:40a [facility] Of Dipak Carty, 34877 M06.4 Abel M.DJermain M79.1 R20.8 Z79.899 Office Visit 09/21/2015 1:00p [facility] Of Dipak Carty, 89012 M06.4 Abel M.DJermain M79.1 R20.8 L13.0 D82.8 Office Visit 05/24/2015 9:45a [facility] Val[facility] Bailey 42582 G43.009 F44.5 Office Visit 03/01/2015 9:45a [facility] [address] 345.81 Office Visit 02/03/2015 9:45a [facility] [address] 780.39 780.39 296.89 Office Visit 01/09/2015 10:15a [facility] Valdez Bailey, 03897 780.39 Services Of Abel GILMORE Office Visit 01/08/2015 3:22p [facility] Nish Vasques, 77198 780.39 M.D. 780.4 Office Visit 11/28/2014 1:31p [facility], Lida Fernandes, 27819 977.9 Hospitalists Jon 729.1 296.89 E958.9 Office Visit 11/27/2014 1:31p [facility],pc Tj Perdomo M.D. 05975 977.9 Hospitalists 729.1 296.89 E958.9 Office Visit 11/26/2014 1:30p [facility], Tj Perdomo M.D. 84429 977.9 Hospitalists 296.89 729.1 E958.9 Office Visit 11/25/2014 1:30p [facility], Brianda Reardon 38352 729.1 Hospitalists D.OJermain 977.9 296.89 311 Office Visit 09/15/2014 10:28a [facility] Brianda Reardon, 70333 682.1 Hospitalists D.O. 530.81 311 V02.54 Office Visit 09/14/2014 10:28a [facility]pc Brianda Reardon, 00519 682.1 Hospitalists D.O. 530.81 311 V02.54 Office Visit 09/13/2014 10[facility]27[facility] Fareed Henderson, 64121 682.1 Hospitalists M.DJermain 530.81 311 V02.54 Office Visit 09/12/2014 10:27a [facility]pc Fareed Henderson, 44071 682.1 Hospitalists M.DJermain V02.54 311 Office Visit 09/11/2014 10:[place] [address] 682.1 Assoc, Hospitalists MJermainDJermain 530.81 311 V02.54 Plan of Care Future Appointment(s):06/16/2018 1:30 pm - DAMI Stallworth at [facility]09/09/2018 1:45 pm - Valdez Bailey MD at Neurohospitalist Mbnelq3403/10/2018 - CRISTIN StallworthPM06.4 Inflammatory polyarthropathyComments: We discussed to continue on Mtx 6 tabs for an other 3 month if labs allow.Follow up:3 jevikR77.7 FibromyalgiaComments:We discussed that there are no contraindication to take CBD oil while on MTX.Z79.899 Other meterman ( current) drug therapy
--- OUTSIDE RECORDS SUMMARY | 2018-04-07 17:00 | XMS REPORT ---
:1980 External Reference #:[id number] Author Organization [facility] Address [address] [place] [address] [place] [address] Phone [phone] Care Team Providers Name Role Phone Abdullahi Loaiza MD Primary Care Physician Unavailable Payers Type Date Identification Numbers Payment Provider Subscriber Commercial Effective: Policy Number: [id number] Hayden eFlicia Loyola 2016 Group Number: [id number] [address] PayID: [id number] [place] [address] Medigap Part B Expires: 2015 Policy Number: BS Facets Felicia Loyola [id number] PayID: [id number] [address] [address] [place] [address] Medigap Part B Effective: 2015 Policy Number: [id number] Medicaid Felicia Loyola Expires: 2016 Group Name: 1 1 [address] PayID: [id number] [place] [address] Workers Compensation Onset: 2015 Policy Number: Justo Felicia Loyola [id number] PayID: [id number] [address] [address] [place] [address] Problems Date Description Provider Status Onset: 02/03/2015 [...] by M06.4 s mouth every , joon [employer] Depakote ER 09/08 Active Tablets ER 500mg [...] -Unit bs tablet by Gordon, mouth twice [employer] a day Acetaminophen Active Tablets 500mg 1-2 [...] Zsofi s mouth every Gordon, - week [employer] 10/07 Depakote ER 02/26 Hx Tablets ER 250mg 90tab Take 3 24HR s tablets by Leo, - mouth every MD 04/07 night. /2016 Methotrexate 01/10 Hx Tablets 2.5mg 48tab 4 tbs by M06.4 Zsofia s mouth every Gordon, - week [employer] 03/11 Calcium Oyster 10/14 Hx Tablets 1250(500C 60tab 2 tabs po q Zsofia a) mg s day Gordon, - [employer] 01/10 Acetaminophen-Co 06/25 Hx Tablets 300-30mg 14tab 1 tab by M25.552 Zsofia deine #3 s mouth two Gordon, - times a day [employer] 10/14 as needed for pain Duloxetine HCL 04/[address] 30mg 30cap 1 by mouth Part s every day Machelle, - M.D. 05/02 Naltrexone HCL 04/08 Hx Powder 90uni 4.5 mg M79.7 ts compounded Machelle, - in capsules M.D. 04/22 by mouth every day Budesonide 03/06 Hx Suspension 1mg/2ML 6ml Use in J39.8 Zsofi nebulizer Gordon, - 2x daily [employer] 03/06 for 3 days Mucinex 03/06 Hx Tablets ER 600mg 30tab 1 tab po J39.8 12HR s bid Gordon, - [employer] 04/22 Calcium 500+D3 03/06 Hx Tablets 500-400mg 180ta 1 tab by E55.9 -Unit bs mouth twice Gordon, - a day [employer] 03/11 Pulmicort 03/06 Hx Aerosol 90mcg/Act 1unit 2 puff J39.8 s twice a day Machelle, - M.D. 04/22 Humira Pen 01/21 Hx PNKT 40mg/0.8M 4unit inject 40 M06.4 L s mg Gordon, - subcutaneou [employer] 09/06 sly every week Levsin 01/01 Hx [...] avoid other NSAIDs Ergocalciferol 09/27 Hx Capsules 28300Dzrx 14cap Take 1 s capsule by Machelle, [...] CPT Code Status Date Vaccine Lot # [id number] Given 06/13/2017 Influenza Virus Vaccine, Quadrivalent, Split, [id number] Preservative Free Vital Signs Date Vital Result Comment 03/09/2018 Height 63 inches 5'3" Weight 218.00 [...] Test Date Test Result H/L Range Note Comp Metabolic Panel 02/10/2018 Sodium 140 mmol/L [...] Egfr Non- 68.7 >60 Egfr 83.1 >60 1 Laboratory test finding 02/10/2018 C Reactive Protein 5.93 mg/L <8.01 2 CBC Auto Diff 02/10/2018 White Blood Count [...] Blood Cells % 0.1 Laboratory test finding 02/10/2018 Erythrocyte Sed Rate 13 mm/Hr 0-14 3 Comp Metabolic Panel 12/09/2017 Sodium 136 mmol/L [...] 0-2 Nucleated Red Blood Cells % 0.1 CBC No Diff 10/27/2017 White Blood Count 9.2 10^3/uL 3.5-10.8 Red Blood Count 4.80 10^6/uL 4.0-5.4 Hemoglobin 13.1 g/dL 12.0-16.0 Hematocrit 39 % 35-47 Mean Corpuscular Volume 82 fL 80-97 Mean Corpuscular Hemoglobin 27 pg 27-31 Mean Corpuscular HGB Conc 33 g/dL 31-36 Red Cell Distribution Width 16 % High 10.5-15 Platelet Count 269 10^3/uL 150-450 Mean Platelet Volume 8 um3 7.4-10.4 Laboratory test finding 10/27/2017 Ferritin 16.3 ng/mL 11-307 Lipid Profile (Trig/Chol/HDL) 10/27/2017 Triglycerides 307 mg/dL 6 Cholesterol 249 mg/dL 7 HDL Cholesterol 54.4 mg/dL 8 LDL Cholesterol 133 mg/dL 9 Laboratory test finding 10/27/2017 Glucose 77 mg/dL 70-100 Vitamin D Total 25(Oh) 39.8 ng/mL 20-50 Hemoglobin A1c (Glyco HGB) 5.4 % 4.0-5.6 10 Laboratory test finding 10/03/2017 Erythrocyte Sed Rate 11 mm/Hr 0-14 11 CBC Auto Diff 10/03/2017 White Blood Count [...] Cells % 0.1 Laboratory test finding 10/03/2017 C Reactive Protein 7.59 mg/L High < 5.00 12 Comp Metabolic Panel 10/03/2017 Sodium 137 mmol/L [...] Egfr Non- 67.8 >60 Egfr 87.2 >60 13 CBC Auto Diff 08/06/2017 White Blood [...] Erythrocyte Sed Rate 21 mm/Hr High 0-14 CBC Auto Diff 03/12/2017 White Blood Count [...] Blood Cells % 0 Comp Metabolic Panel 03/12/2017 Sodium 139 mmol/L [...] Non- 76.7 >60 Egfr 98.7 >60 19 Comp Metabolic Panel 12/31/2016 Sodium 135 mmol/L [...] Blood Cells % 0.1 Comp Metabolic Panel 09/02/2016 Sodium 136 mmol/L [...] Egfr Non- 63.5 >60 Egfr 81.6 >60 26 Laboratory test finding 09/02/2016 C Reactive Protein 8.19 mg/L High < 5.00 27 CBC Auto Diff 09/02/2016 White Blood Count [...] 09/02/2016 Erythrocyte Sed Rate 13 mm/Hr 0-14 Laboratory test finding 07/16/2016 Vitamin B12 > [...] Color Carolyn Urine Appearance Cloudy Urine Specific [place] 1.025 1.010-1.030 Urine pH 5.0 5-9 Urine [...] Erythrocyte Sed Rate 31 mm/Hr High 0-14 S.Pneumoniae Igg AB 23 09/21/2015 S. pneumoniae [...] Type 33F IgG AB 0.5 g/mL >=1.7 53 Laboratory test finding 09/21/2015 Immunoglobulin G (Igg) 867 mg/dL 767 - 1590 54 Immunoglobulin M (Igm) 73 mg/dL 37 - 286 55 Neutrophil Cytoplasmic AB 09/21/2015 C-Anca Negative Negative P Anca Negative Negative Anca Reviewed By MD Ron Michaels <SEE NOTE> 56 Vitamin D 1,25 And Vitamin 09/21/2015 Vitamin D Total 25(Oh) 15.5 ng/mL Low 30-50 D,2 Vitamin D, 1,25 Dihydroxy 54 pg/mL 18-78 57 Laboratory test 09/21/2015 Vitamin B12 152 pg/mL Low 180-914 58 finding Celiac Panel 09/21/2015 Tissue Transglutaminase IgA <1.2 U/mL 59 Ab Immunoglobulin A 136 mg/dL 61 - 356 Celiac Interpretation See Comment 60 Laboratory test finding 09/21/2015 Uric Acid 5.1 mg/dL 2.3-6.6 Creatine Kinase(CK) 97 U/L 10-223 TSH (Thyroid Stim Horm) 1.18 ?IU/mL 0.34-5.60 Hla B27 09/21/2015 Hla B27 Negative 61 Hla B27 Interp See Comment 62 Laboratory test finding 02/22/2015 Trileptal (Oxcarbazepine) [...] (Topiramate) 2.7 g/mL 2.0 - 20.0 65 Comp Metabolic Panel 02/03/2015 Sodium 139 mmol/L [...] Egfr Non- 77.6 >60 Egfr 99.8 >60 66 Laboratory test finding 02/03/2015 Trileptal (Oxcarbazepine) 6 g/mL 3 - 35 67 Laboratory test finding 02/01/2015 Trileptal (Oxcarbazepine) 8 g/mL 3 - 35 68 Sodium 139 mmol/L 133-145 1 Because ethnic data is not always readily [...] 15-29 5 Kidney failure <15 (or dialysis) 2 STANDING ORDER ENTERED 12/10/17 EXPIRES 06/11/18 NON-FASTING 3 STANDING ORDER ENTERED 12/10/17 EXPIRES 06/11/18 [...] (or dialysis) 5 Acute inflammation: >10.00 6 Desirable: <150 Borderline High: 150-199 High: 200-499 Very High: >500 7 Desirable: <200 Borderline High: 200-239 High: >239 8 Low: <40 Desirable: 40-60 High: >60 9 Desirable: <100 Near Optimal: 100-129 Borderline High: 130-159 High: 160-189 Very High: >189 10 Therapeutic target for the treatment of diabetes mellitus patients is <7% HBA1C, and in selective patients <6.0%. Please refer to [place] [employer] diabetic care guidelines for further information. 11 STANDING ORDER ENTERED 06/28/17 EXPIRES 12/11/17 NON-FASTING CC: LEO CC: AWA 12 Acute inflammation: >10.00 13 Because ethnic data is not always readily [...] 15-29 5 Kidney failure <15 (or dialysis) 14 Because ethnic data is not always [...] 5 Kidney failure <15 (or dialysis) 26 Because ethnic data is not always readily [...] 15-29 5 Kidney failure <15 (or dialysis) 27 Acute inflammation: >10.00 28 Normal Range 180 to 914 Indeterminate [...] For detailed information regarding test interpretation see: [email or web address]-[email or web address]/ Clinical+[email or web address] 40 TB Ag minus Nil Result: 0.00 IU/m Mitogen minus Nil Result: 13.31 IU/mL Nil Result: 0.05 IU/mL Test Performed by: [address] [address] [employer] Making Machine Operator: Jose Lock II, M.D., Ph.D. 41 STANDING [...] detection of blood. 50 Test Performed by: [place] [address] [employer] Making Machine Operator: Jose Lock II, M.D., Ph.D. 51 Acute inflammation: >10.00 52 REFERENCE VALUE <20.0 (Negative) Test Performed by: [place] [address] [employer] Making Machine Operator: Jose Lock II, M.D., Ph.D. 53 Either of the two following conditions would [...] only present in Prevnar-13. Test Performed by: [place] [address] [employer] Machine Operator: Jose Lock II, M.D., Ph.D. 54 Test Performed by: [place] [address] [employer] Making Machine Operator: Jose Lock II, M.D., Ph.D. 55 Test Performed by: [place] [address] [employer] Making Machine Operator: Jose Lock II, M.D., Ph.D. 56 Ron Garcia 57 Test Performed by: [place] [address] [employer] Making Machine Operator: Jose Lock II, M.D., Ph.D. 58 Normal Range 180 to 914 Indeterminate Range 145 to 180 Deficient Range <145 59 REFERENCE VALUE <4.0 (Negative) Test Performed by: [place] [address] Need[employer] Making Machine Operator: Jose Lock II, M.D., Ph.D. 60 Negative serology. Celiac disease unlikely. However, approximately 10% of patients with celiac disease are seronegative. Also, patients who are already adhering to a gluten-free diet may be seronegative. If celiac disease is highly clinically suspected, consider HLA-DQ typing. Test Performed by: [place] [address] [employer] Making Machine Operator: Jose Lock II, M.D., Ph.D. 61 REFERENCE VALUE Not Applicable 62 RESULT: HLA-B27 antigen was not detected. ADDITIONAL INFORMATION Method: Flow Cytometry Performing Laboratory CLIA# [id number] Test Performed by: [place] [address] [employer] Making Machine Operator: Jose Lock II, M.D., Ph.D. 63 Test Performed by: [place] [address] [employer] Making Machine Operator: Jose Lock II, M.D., Ph.D. 64 Because [...] <15 (or dialysis) 65 Test Performed by: [place] [address] [employer] Making Machine Operator: Jose Lock II, M.D., Ph.D. 66 Because ethnic data is not always readily [...] 15-29 5 Kidney failure <15 (or dialysis) 67 Test Performed by: [place] [address] [employer] Making Machine Operator: Jose Lock II, M.D., Ph.D. 68 Test Performed by: [place] [address] Need[employer] Making Machine Operator: Jose Lock II, M.D., Ph.D. Procedures Date CPT Code Description Status 05/02/201663684 Inject/Drain Joint/Bursa Major W/O US Completed 05/02/201656246 Inject/Drain Joint/Bursa Major W/O US Completed 02/27/2016 54317 Nerve Conduction 07-08 Studies Completed 02/27/2016 89392 Needle Electromyography Complete, Five Or More Muscles Completed Studied 01/22/2016 02240 Admin Of Inj Completed 02/22/2015 45413 EEG Recording Awake & Drowsy Completed 11/25/2014 31903 EEG Recording In Coma Or Sleep Only Completed 11/25/2014 99791 EKG, Interpretation Only Completed Encounters Type Date Location Provider CPT E/M Dx Office Visit 12/09/2017 [facility] DAMI Stallworth [address] M06.4 1:00p Of Ct Scan Tech M79.7 Z79.899 E66.9 Office Visit 10/07/2017 2:00p [facility] DAMI Stallworth [address] Scan Tech M79.7 Z79.899 Office Visit 09/08/2017 1:45p [facility] Valdez Bailey 79519 G43.009 MD Office Visit 06/13/2017 2:00p [facility] Of Janet Leyva, [address] Scan Tech [employer] M79.7 M16.31 Z79.899 Z23 Office Visit 04/07/2017 9:30a [facility] Valdez Ramirezpert, 20876 G43.009 MD Z79.899 Office Visit 03/11/2017 2:30p [facility] Of CRISTIN StallworthP [address] Scan Tech M54.2 M16.31 M25.569 Z79.899 Office Visit 02/13/2017 2:15p [facility] Valdez Bailey, 20650 G43.009 M54.2 Office Visit 01/10/2017 9:30a [facility] Of CRISTIN StallworthP [address] Scan Tech Z79.899 M79.7 Z02.71 Office Visit 10/14/2016 2:30p [facility] Valdez Leo, 6[address] G43.009 G40.509 Z79.899 Office Visit 10/11/2016 1:30p [facility] Janet Leyva, [employer] [employer] [address] Scan Tech M54.2 M16.2 M06.4 Z79.899 Office Visit 09/06/2016 2:30p [facility] Janet Leyva, [employer] [employer] [address] Scan Tech M16.2 M79.7 Z79.899 Office Visit 07/19/2016 3:00p [facility] Janet Leyva, [employer] [employer] [address] Scan Tech M25.562 M79.7 E55.9 Office Visit 07/15/2016 10:45a [facility] Of Polina Hernandez M.D. 04152 M25.552 C.M.A. M25.551 M16.11 M16.12 M25.562 M79.7 M70.62 M22.2x2 Office Visit 07/08/2016 9:00a [facility] Of Polina Hernandez M.D. 58536 M25.552 C.M.A. M25.551 M25.562 M25.462 M16.11 M16.12 M79.7 M70.62 G56.03 Office Visit 06/25/2016 1:30p [facility] Janet Leyva, [employer] [employer] [address] Scan Tech M79.7 K76.0 M25.552 M25.562 E55.9 D51.9 Z79.899 Office Visit 05/02/2016 4:00p [facility] Dipak Carty, 13226 M70.52 Of Abel M.D. M70.62 Office Visit 04/22/2016 2:40p [facility] Of Dipak Carty, [address] Scan Tech M.D. M06.4 M54.2 K76.0 Z79.899 Office Visit 03/14/2016 3:40p [facility] Of Dipak Carty, [address] Scan Tech M.D. M06.4 M54.2 G56.00 K76.0 Office Visit 03/06/2016 1:30p [facility] Of Janet Leyva, [facility] [address] Scan Tech R05 E55.9 Office Visit 02/19/2016 2:20p [facility] Of Dipak Carty, [address] Scan Tech M.D. M79.7 M70.52 R23.1 N18.9 Office Visit 01/22/2016 1:40p [facility] Of Dipak Carty, [address] Scan Tech M.D. M79.7 Z79.899 K58.0 M54.2 Office Visit 01/02/2016 9:00a [facility] Of Dipak Carty, [address] Scan Tech M.D. M79.7 Z79.899 K58.0 Office Visit 12/06/2015 1:20p [facility] Of Dipak Carty, [address] Scan Tech M.D. M79.7 Z79.899 R20.8 M85.88 Office Visit 11/20/2015 10:40a [facility] Of Dipak Carty, [address] Scan Tech M.D. M79.7 Z79.899 Office Visit 11/06/2015 2:40p [facility] Of Dipak Carty, [address] Scan Tech M.D. M79.1 Z79.899 R60.0 Office Visit 10/04/2015 8:40a [facility] Of Dipak Carty, 16406 M06.4 Abel Webb M79.1 R20.8 Z79.899 Office Visit 09/21/2015 1:00p [facility] Of Dipak Carty, 49835 M06.4 Abel Webb M79.1 R20.8 L13.0 D82.8 Office Visit 05/24/2015 9:45a [facility] Valdez Bailey, 11587 G43.009 F44.5 Office Visit 03/01/2015 9:45a [facility] [address] 345.81 Office Visit 02/03/2015 9:45a [facility] [address] 780.39 780.39 296.89 Office Visit 01/09/2015 10:15a [facility]dez Bailey, 28516 780.39 Services Of Abel GILMORE Office Visit 01/08/2015 3:22p [facility] Nish Vasques, 15402 780.39 M.D. 780.4 Office Visit 11/28/2014 1:31p [facility], Lida Fernandes, 40773 977.9 Hospitalists MJimmy 729.1 296.89 E958.9 Office Visit 11/27/2014 1:31p [facility], Tj Perdomo M.D. 82861 977.9 Hospitalists 729.1 296.89 E958.9 Office Visit 11/26/2014 1:30p [facility], Tj Perdomo M.D. 26078 977.9 Hospitalists 296.89 729.1 E958.9 Office Visit 11/25/2014 1:30p [facility], Brianda Reardon 46173 729.1 Hospitalists D.O. 977.9 296.89 311 Office Visit 09/15/2014 10:28a [facility], Brianda Reardon, 17162 682.1 Hospitalists D.O. 530.81 311 V02.54 Office Visit 09/14/2014 10:28a [facility], Brianda Reardon, 54623 682.1 Hospitalists DShani 530.81 311 V02.54 Office Visit 09/13/2014 10:27a [facility], Fareed Henderson, 00752 682.1 Hospitalists Jon 530.81 311 V02.54 Office Visit 09/12/2014 10:27a [facility], Fareed Henderson, 88135 682.1 Hospitalists Jon V02.54 311 Office Visit 09/11/2014 10:26[facility] [address] 682.1 Assoc, Hospitalists Jon 530.81 311 V02.54 Plan of Care Future Appointment(s):09/09/2018 1:45 pm - Valdez Bailey MD at [facility] [id number]/10/2018 2:30 pm - DAMI Stallworth at [facility]03/09/2018 - Valdez Bailey MDG43.009 Migraine w/o aura, not intractable, w/o status migrainosusComments:Has improved migraine and will continue with the depakote. She is going to try cannaboid on her ownand will call me if her headaches are better and may at that point decrease her depakote.No clear seizures.Follow up:6 MONTHS
[2018-04-07 17:08] VITALS: BP 128/68
[2018-04-07] MEDS ORDERED: Phenazopyridine TAB* 100 MG PO ONE (17:37)
--- NOTE | 2018-04-07 17:46 | UC ---
Complaint Female HPI - HPI Summary HPI Summary: The patient is a 37-year-old female with a one-day history of dysuria urgency and frequency. She has no vaginal discharge or itching. She denies any abdominal pain or back pain. She has no nausea vomiting or diarrhea. She denies any fever or chills. She has had UTIs in the past. She has had a MAURICIO with BSO. - History Of Current Complaint Chief Complaint: UCGU Stated Complaint: BURNING URINATION Time Seen by Provider: 04/07/18 17:25 Hx Obtained From: Patient Hx Last Menstrual Period: February 2998 Onset/Duration: Sudden Onset, Lasting Hours Timing: Intermittent, Lasting Seconds Severity Initially: Severe Severity Currently: None Pain Intensity: 8 - when urinating Pain Scale Used: 0-10 Numeric Character: Burning Aggravating Factor(s): Urination Associated Signs And Symptoms: Negative: Fever, Back Pain, Vaginal Bleeding/ Discharge, Vaginal Discharge, Nausea, Vomiting(# Of Episodes =), Genital Swelling, Genital Blisters, Retained Foregin Body (Specify) - Allergies/Home Medications Allergies/Adverse Reactions: Allergies Allergy/AdvReac Type Severity Reaction Status Date / Time adhesive tape Allergy Intermediate Blisters Verified 04/07/18 17:08 amoxicillin Allergy Intermediate Hives Verified 04/07/18 17:08 cephalexin [From Keflex] Allergy Intermediate Hives Verified 04/07/18 17:08 hydromorphone Allergy Intermediate vomitting Verified 04/07/18 17:08 ibuprofen Allergy Intermediate migrains Verified 04/07/18 17:08 NSAIDS (Non-Steroidal Allergy Intermediate fatty liver Verified 04/07/18 17:08 Anti-Inflamma vancomycin Allergy Intermediate Hives Verified 04/07/18 17:08 Adhesive Tape Allergy Blisters Verified 04/07/18 17:08 Home Medications: Home Medications Cbd Oil 25 mg SL BEDTIME 04/07/18 [History] Gabapentin 300 mg PO BID 04/07/18 [History Confirmed 04/07/18] PMH/Surg Hx/FS Hx/Imm Hx Previously Healthy: Yes - Surgical History Surgical History: Yes Surgery Procedure, Year, and Place: HYSTERECTOMY. SINUS. Rt BREAST BIOPSY - BENIGN. CHOLECYSTECTOMY. TUBAL LIGATION/UTERINE ABLASION PRIOR TO HYSTERECTOMY. bilateral hip replacement. sinus surgery - Family History Known Family History: Positive: Hypertension, Diabetes - Social History Alcohol Use: None Substance Use Type: None Smoking Status (MU): Former Smoker Type: Cigarettes Amount Used/How Often: Every couple weeks-months Household Exposure Type: Cigarettes - Immunization History Most Recent Influenza Vaccination: August 2015 Most Recent Tetanus Shot: 2006 Most Recent Pneumonia Vaccination: Unsure Review of Systems Constitutional: Negative Skin: Negative Eyes: Negative ENT: Negative Respiratory: Negative Cardiovascular: Negative Gastrointestinal: Negative Genitourinary: Dysuria, Frequency, Urgency Motor: Negative Neurovascular: Negative Musculoskeletal: Negative Neurological: Negative Psychological: Negative Is Patient Immunocompromised?: No All Other Systems Reviewed And Are Negative: Yes Physical Exam Triage Information Reviewed: Yes Appearance: Well-Appearing, No Pain Distress, Well-Nourished Vital Signs: Initial Vital Signs Temp 98.2 F 04/07/18 17:05 Pulse 80 04/07/18 17:05 Resp 18 04/07/18 17:05 BP 128/68 04/07/18 17:05 Pulse Ox 99 04/07/18 17:05 Eyes: Positive: Conjunctiva Clear ENT: Positive: Hearing grossly normal. Negative: Nasal congestion, Nasal drainage, Trismus, Muffled voice, Hoarse voice, Uvula midline Neck: Positive: Supple, Nontender, No Lymphadenopathy Respiratory: Positive: Lungs clear, Normal breath sounds, No respiratory distress Cardiovascular: Positive: RRR, No Murmur Abdomen Description: Positive: Nontender, No Organomegaly, Soft. Negative: CVA Tenderness (R), CVA Tenderness (L) Musculoskeletal: Positive: ROM Intact, No Edema Neurological: Positive: Alert Psychological Exam: Normal Skin Exam: Normal Complaint Female Dx - Course Course Of Treatment: UA ++ Leuks,+++ RBCs - Differential Dx/Diagnosis Provider Diagnoses: acute cystitis Discharge - Sign-Out/Discharge Documenting (check all that apply): Patient Departure All imaging exams completed and their final reports reviewed: No Studies - Discharge Plan Condition: Stable Disposition: HOME Prescriptions: Nitrofurantoin Monohyd/M-Cryst [Macrobid 100 mg Capsule] 100 mg PO BID #14 cap Phenazopyridine TAB* [Pyridium TAB*] 100 mg PO TID #6 tab Patient Education Materials: Urinary Tract Infection in Women (ED) Referrals: Abdullahi Loaiza MD [Primary Care Provider] - 2 Days (if not better) Additional Instructions: recheck for new or worsening symptoms - Billing Disposition and Condition Condition: STABLE Disposition: Home
--- NOTE | 2018-04-09 17:27 | UC ---
- Progress Note Progress Note: Culture report returns with no evidence of UTI---if sx are continuing please get re-checked-- Discharge - Sign-Out/Discharge Documenting (check all that apply): Post-Discharge Follow Up All imaging exams completed and their final reports reviewed: No Studies - Discharge Plan Condition: Stable Disposition: HOME Prescriptions: Nitrofurantoin Monohyd/M-Cryst [Macrobid 100 mg Capsule] 100 mg PO BID #14 cap Phenazopyridine TAB* [Pyridium TAB*] 100 mg PO TID #6 tab Patient Education Materials: Urinary Tract Infection in Women (ED) Referrals: Abdullahi Loaiza MD [Primary Care Provider] - 2 Days (if not better) Additional Instructions: recheck for new or worsening symptoms - Billing Disposition and Condition Condition: STABLE Disposition: Home
== END 2018-04-07 17:50 | disposition home or self-care (01) ==
LOC: UCEAST 16:53
DX: N30.00 Acute cystitis without hematuria (principal); Z91.09 Other allergy status, other than to drugs and biological substances; Z88.0 Allergy status to penicillin; Z88.5 Allergy status to narcotic agent; Z88.8 Allergy status to other drugs, medicaments and biological substances; Z87.891 Personal history of nicotine dependence; Z87.440 Personal history of urinary (tract) infections
CPT/HCPCS: 81003; 87086; 99212; A9270-GY; G0463

== ENCOUNTER 2019-10-28 15:03 | Emergency (ER) | payer MEDICARE, MEDICAID ==
[2019-10-28 15:50] VITALS: BP 134/63
--- NOTE | 2019-10-28 15:51 | UC ---
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 Hurting since Friday. Pain is 6. States occasionally her chest hurts on expiration. 39 yo female c/o ear pain - bilateral and sore throat, since Friday (today is ). No fever / chills. no rash. No abd pain / n/v/d. No new congestion Has copd, cough has not changed during the day, but possibly more so at night. Albuterol prescription is , requests refill. Has inhaler, but doesn't work as well as nebulizer. No h/a. - History of Current Complaint Chief Complaint: UCGeneralIllness Stated Complaint: EAR COMPLAINT, SORE THROAT Time Seen by Provider: 10/28/19 15:39 Hx Obtained From: Patient Hx Last Menstrual Period: February 2998 Pain Intensity: 6 - Allergy/Home Medications Allergies/Adverse Reactions: Allergies Allergy/AdvReac Type Severity Reaction Status Date / Time adhesive tape Allergy Intermediate Blisters Verified 10/28/19 15:51 amoxicillin Allergy Intermediate Hives Verified 10/28/19 15:51 cephalexin [From Keflex] Allergy Intermediate Hives Verified 10/28/19 15:51 hydromorphone Allergy Intermediate vomitting Verified 10/28/19 15:51 ibuprofen Allergy Intermediate migrains Verified 10/28/19 15:51 NSAIDS (Non-Steroidal Allergy Intermediate fatty liver Verified 10/28/19 15:51 Anti-Inflamma vancomycin Allergy Intermediate Hives Verified 10/28/19 15:51 Adhesive Tape Allergy Blisters Verified 10/28/19 15:51 Home Medications: Home Medications Albuterol inh POWDER (NF) [Proair Respiclick] 2 puff INH Q6HR PRN 08/01/16 [ History Confirmed 10/28/19] BuPROPion XL* [Bupropion XL*] 300 mg PO DAILY 08/01/16 [History Confirmed ] Fluticasone-Salmeterol 100-50* [Advair Diskus 100-50*] 1 puff INH BID 08/01/16 [ History Confirmed 10/28/19] Ondansetron ODT TAB* [Zofran Odt TAB*] 4 mg PO Q6H PRN 08/01/16 [History Confirmed 10/28/19] SUMAtriptan TAB* [Imitrex TAB*] 100 mg PO BID PRN 08/01/16 [History Confirmed ] lamoTRIgine TAB(*) [LaMICtal TAB(*)] 100 mg PO DAILY 08/01/16 [History Confirmed 10/28/19] Lurasidone(*) [Latuda] 20 mg PO DAILY 03/01/18 [History Confirmed 10/28/19] Gabapentin 300 mg PO BID 04/07/18 [History Confirmed 10/28/19] Albuterol 2.5MG/3ML (0.083%)* [Ventolin 2.5 MG/3 ML NEB.RANCHO*] 2.5 mg INH Q6H PRN #25 vial 10/28/19 [Rx] Ascorbic Acid TAB* [Vitamin C TAB*] 500 mg PO BID 10/28/19 [History Confirmed 10/28/19] Cholecalciferol (Vitamin D3) [Vitamin D3] 5,000 unit PO DAILY 10/28/19 [History Confirmed 10/28/19] Cyclobenzaprine TAB* [Flexeril 10 MG TAB*] 10 mg PO BID 10/28/19 [History Confirmed 10/28/19] Diclofenac 1% GEL (NF) [Voltaren 1% GEL (NF)] 1 applic TOPICAL BID 10/28/19 [ History Confirmed 10/28/19] Erenumab-Aooe [Aimovig Autoinjector] 70 mg SQ MONTHLY 10/28/19 [History Confirmed 10/28/19] Estradiol [Estrace] 2 mg PO DAILY 10/28/19 [History Confirmed 10/28/19] Pantoprazole TAB * [Protonix TAB*] 20 mg PO DAILY 10/28/19 [History Confirmed ] Tofacitinib Citrate [Xeljanz] 10 mg PO DAILY 10/28/19 [History Confirmed ] metroNIDAZOLE [Metronidazole 0.75 % gel] 1 applic TOPICAL DAILY 10/28/19 [ History Confirmed 10/28/19] predniSONE 10 mg TAB [Deltasone 10 MG TAB*] 10 mg PO DAILY #14 tab 10/28/19 [Rx] PMH/Surg Hx/FS Hx/Imm Hx Previously Healthy: Yes - Surgical History Surgical History: Yes Surgery Procedure, Year, and Place: HYSTERECTOMY. SINUS. Rt BREAST BIOPSY - BENIGN. CHOLECYSTECTOMY. TUBAL LIGATION/UTERINE ABLASION PRIOR TO HYSTERECTOMY. bilateral hip replacement. sinus surgery - Family History Known Family History: Positive: Hypertension, Diabetes - Social History Alcohol Use: None Substance Use Type: None Smoking Status (MU): Current Some Day Smoker Type: Cigarettes Amount Used/How Often: Every couple weeks-months Household Exposure Type: Cigarettes - Immunization History Most Recent Influenza Vaccination: August 2015 Most Recent Tetanus Shot: 2006 Most Recent Pneumonia Vaccination: Unsure Review of Systems All Other Systems Reviewed And Are Negative: Yes Constitutional: Positive: Negative Skin: Positive: Negative Eyes: Positive: Negative ENT: Positive: Other - see hpi Respiratory: Positive: Negative Cardiovascular: Positive: Negative Gastrointestinal: Positive: Negative Genitourinary: Positive: Negative Motor: Positive: Negative Neurovascular: Positive: Negative Musculoskeletal: Positive: Negative Neurological/Mental Status: Positive: Negative Psychological: Positive: Negative Is Patient Immunocompromised?: No Physical Exam Triage Information Reviewed: Yes Appearance: Well-Nourished - sitting up, conversing easily, nad Vital Signs: Initial Vital Signs Temp 98.4 F 10/28/19 15:45 Pulse 95 10/28/19 15:45 Resp 18 10/28/19 15:45 BP 134/63 10/28/19 15:45 Pulse Ox 99 10/28/19 15:45 Vital Signs Reviewed: Yes Eye Exam: Normal ENT: Positive: Pharyngeal erythema, Other - both TM's dull and scarred. TM's not erythematous. EAC ok. ++Bilat TMJ tenderness Neck exam: Normal Neck: Positive: Supple Respiratory Exam: Other - + occas exp wheeze, no distress Respiratory: Positive: Lungs clear, Normal breath sounds, No respiratory distress, No accessory muscle use Cardiovascular Exam: Normal Cardiovascular: Positive: RRR, Pulses Normal, Brisk Capillary Refill Abdominal Exam: Normal Abdomen Description: Positive: Nontender Bowel Sounds: Positive: Present Musculoskeletal Exam: Normal Musculoskeletal: Positive: Strength Intact Neurological Exam: Normal - grossly nonfocal Psychological Exam: Normal - nad Skin Exam: Normal - no visible or reported rash nondiaphoretic Course/Dx - Course Course Of Treatment: Sx are c/w TMJ. Also copd, albuterol e-scribed (ran out). Rx prednisone taper (d/t acute tmj inflammation and copd) Albuterol rx e-scribed. RST / Inflluenza neg Reviewed coa / tx plan Questions as posed answered to the best of my ability. - Diagnoses Provider Diagnosis: COPD (chronic obstructive pulmonary disease), TMJ arthropathy Discharge ED - Sign-Out/Discharge Documenting (check all that apply): Patient Departure All imaging exams completed and their final reports reviewed: No Studies - Discharge Plan Condition: Stable Disposition: HOME Prescriptions: Albuterol 2.5MG/3ML (0.083%)* [Ventolin 2.5 MG/3 ML NEB.RANCHO*] 2.5 mg INH Q6H PRN #25 vial PRN Reason: Wheezing predniSONE 10 mg TAB [Deltasone 10 MG TAB*] 10 mg PO DAILY #14 tab Patient Education Materials: COPD (Chronic Obstructive Pulmonary Disease) (ED) , Temporomandibular Disorder (ED) Referrals: Abdullahi Loaiza MD [Primary Care Provider] - Additional Instructions: Small frequent meals, light chewing. Follow up with your dentist when able. Continue medications (including muscle relaxant per your primary care physician. Refill albuterol nebulizer. Please seek medical attention for worse or new problems. - Billing Disposition and Condition Condition: STABLE Disposition: Home
[2019-10-28 16:37] LABS: Influenza A Molecular Negative (Negative); Influenza B Molecular Negative (Negative)
== END 2019-10-28 17:17 | disposition home or self-care (01) ==
LOC: UCCORT 15:03
DX: J44.9 Chronic obstructive pulmonary disease, unspecified (principal); M26.603 Bilateral temporomandibular joint disorder, unspecified; Z96.643 Presence of artificial hip joint, bilateral; Z88.6 Allergy status to analgesic agent; Z88.1 Allergy status to other antibiotic agents; Z88.5 Allergy status to narcotic agent; Z88.0 Allergy status to penicillin; Z91.048 Other nonmedicinal substance allergy status; Z72.0 Tobacco use
CPT/HCPCS: 87651; 99212; G0463

== ENCOUNTER 2021-01-13 18:46 | Inpatient (IN) ==
[2021-01-13 21:09] LABS: ABS Basophils 0.1 10^3/ul (0-0.2); ABS Eosinophils 0.3 10^3/ul (0-0.6); ABS Lymphocytes 3.5 10^3/ul (1.0-4.8); ABS Neutrophils 6.3 10^3/ul (1.5-7.7); Hematocrit 38 % (35-47); Hemoglobin 12.7 g/dL (12.0-16.0); Lymphocyte % 31.7 %; Mean Corpuscular HGB Conc 34 g/dL (31-36); Mean Corpuscular Hemoglobin 29 pg (27-31); Mean Corpuscular Volume 88 fL (80-97); Mean Platelet Volume 8.2 fL (7.4-10.4); Platelet Count 319 10^3/uL (150-450); Red Blood Count 4.33 10^6 /uL (3.70-4.87); Red Cell Distribution Width 14 % (10-15); White Blood Count 11.2 10^3/uL (3.5-10.8)
[2021-01-13 21:14] LABS: Urine Appearance Cloudy; Urine Bilirubin Negative (Negative); Urine Blood 1+ (Negative); Urine Color Yellow; Urine Glucose Negative (Negative); Urine Ketones Negative (Negative); Urine Nitrite Negative (Negative); Urine Protein Negative (Negative); Urine Specific Gravity 1.013 (1.002-1.030); Urine Urobilinogen Negative (Negative)
[2021-01-13 21:19] LABS: Urine Bacteria 1+ (Absent); Urine Red Blood Cell Trace(0-2/hpf) (Absent); Urine Squamous Epithelial Cell Present (Absent); Urine White Blood Cell 1+(6-10/hpf) (Absent)
[2021-01-13 21:26] LABS: ALT 8 U/L (7-52); AST 10 U/L (13-39); Albumin 4.4 g/dL (3.2-5.2); Albumin/Globulin Ratio 1.7 (1-3); Alkaline Phosphatase 46 U/L (35-149); Anion Gap 5 mmol/L (2-11); Blood Urea Nitrogen 12 mg/dL (6-24); CO2 Carbon Dioxide 28 mmol/L (22-32); Chloride 106 mmol/L (101-111); EGFR African American 72.6 (>60); Globulin 2.6 g/dL (2-4); Glucose 82 mg/dL (70-100); Potassium 3.7 mmol/L (3.5-5.0); Sodium 139 mmol/L (135-145)
[2021-01-13 21:31] LABS: Urine Benzodiazepine Screen None Detected (None Detect); Urine Cannabinoids Screen None Detected (None Detect); Urine Opiates Screen None Detected (None Detect)
[2021-01-13 21:33] LABS: Acetaminophen < 15 mcg/mL; Alcohol, S 18 mg/dL (<10); Salicylate < 2.50 mg/dL (<30)
[2021-01-13 21:49] LABS: TSH Ultra Thyroid Stim Horm 1.12 mcIU/mL (0.34-5.60)
[2021-01-14] MEDS ORDERED: Al Hydrox/Mg Hydrox/Simet LIQ 30 ML UDC PO PRN (03:26)
[2021-01-14] MEDS ORDERED: Albuterol 2.5mg/3 ml (0.083%) NEB.SOLN INH PRN (03:32)
[2021-01-14] MEDS ORDERED: Albuterol HFA INHALER 8 gm MDI INH PRN (03:46)
[2021-01-14] MEDS: Vitamin THERAPEUTIC TAB PO SCH (09:14)
[2021-01-14] MEDS: Cholecalciferol (VIT D3) 1,000 unit TAB PO SCH (09:14)
[2021-01-14] MEDS: Nicotine PATCH 21 MG/24 HR PATCH TRANSDERM SCH (09:15)
[2021-01-14] MEDS: CMCS:Estradiol 1 mg TAB (NF) PO SCH (09:21)
[2021-01-14] MEDS: Mometasone/Formoter 200/5 MDI INH SCH ×2 (09:23→20:50)
[2021-01-14] MEDS ORDERED: Nicotine GUM 4MG FRUIT FLAVOR PO PRN (14:23)
[2021-01-14] MEDS: Nicotine GUM 2MG FRUIT FLAVOR PO PRN ×2 (16:00→20:52)
[2021-01-14] MEDS ORDERED: Nicotine Lozenge mini 4 MG LOZNG.MINI MT PRN (16:42)
[2021-01-15] MEDS: Nicotine PATCH 21 MG/24 HR PATCH TRANSDERM SCH (07:51)
[2021-01-15] MEDS: Nicotine GUM 2MG FRUIT FLAVOR PO PRN ×2 (08:37→11:04)
[2021-01-15] MEDS: Vitamin THERAPEUTIC TAB PO SCH (08:37)
[2021-01-15] MEDS: Cholecalciferol (VIT D3) 1,000 unit TAB PO SCH (08:39)
[2021-01-15] MEDS: CMCS:Estradiol 1 mg TAB (NF) PO SCH (08:40)
[2021-01-15] MEDS: METRONIDAZOLE TOPICAL SCH (08:42)
[2021-01-15] MEDS: Mometasone/Formoter 200/5 MDI INH SCH ×2 (08:43→20:20)
[2021-01-15] MEDS: SPIRIVA Respimat (tiotropium) 2.5 mcg/inh Inhaler INH SCH (08:44)
[2021-01-15] MEDS ORDERED: XELJANZ 11 MG PO SCH (09:00)
[2021-01-15] MEDS: Nicotine GUM 4MG FRUIT FLAVOR PO PRN ×3 (14:05→20:18)
[2021-01-15] MEDS: Sulfamethox/Trimethoprim DS TAB 800/160 mg PO SCH ×2 (15:10→20:15)
[2021-01-15] MEDS: XELJANZ 11 MG PO SCH (20:15)
[2021-01-16] MEDS: Cholecalciferol (VIT D3) 1,000 unit TAB PO SCH (08:25)
[2021-01-16] MEDS: Sulfamethox/Trimethoprim DS TAB 800/160 mg PO SCH ×2 (08:27→20:42)
[2021-01-16] MEDS: Vitamin THERAPEUTIC TAB PO SCH (08:28)
[2021-01-16] MEDS: CMCS:Estradiol 1 mg TAB (NF) PO SCH (08:30)
[2021-01-16] MEDS: Nicotine PATCH 21 MG/24 HR PATCH TRANSDERM SCH (08:31)
[2021-01-16] MEDS: METRONIDAZOLE TOPICAL SCH (08:31)
[2021-01-16] MEDS: Mometasone/Formoter 200/5 MDI INH SCH ×2 (08:31→20:46)
[2021-01-16] MEDS: Nicotine GUM 4MG FRUIT FLAVOR PO PRN ×5 (08:32→20:47)
[2021-01-16] MEDS: SPIRIVA Respimat (tiotropium) 2.5 mcg/inh Inhaler INH SCH (08:32)
[2021-01-16] MEDS: XELJANZ 11 MG PO SCH (20:42)
[2021-01-17] MEDS: Cholecalciferol (VIT D3) 1,000 unit TAB PO SCH (08:15)
[2021-01-17] MEDS: Vitamin THERAPEUTIC TAB PO SCH (08:16)
[2021-01-17] MEDS: METRONIDAZOLE TOPICAL SCH (08:20)
[2021-01-17] MEDS: Nicotine PATCH 21 MG/24 HR PATCH TRANSDERM SCH (08:20)
[2021-01-17] MEDS: Mometasone/Formoter 200/5 MDI INH SCH (08:21)
[2021-01-17] MEDS: SPIRIVA Respimat (tiotropium) 2.5 mcg/inh Inhaler INH SCH (08:21)
[2021-01-17] MEDS: Sulfamethox/Trimethoprim DS TAB 800/160 mg PO SCH (08:23)
[2021-01-17] MEDS: Nicotine GUM 4MG FRUIT FLAVOR PO PRN ×2 (08:49→12:23)
[2021-01-17] MEDS: CMCS:Estradiol 1 mg TAB (NF) PO SCH (08:49)
[2021-01-17 08:53] VITALS: BP 123/74
== END 2021-01-17 13:15 | disposition home or self-care (01) | DRG 885 ==
LOC: ED 18:46 → BSU 01-14 01:35
PROVIDERS: ADMIT Psychiatry & Neurology Addiction Psychiatry; ATTEND Psychiatry & Neurology Psychiatry

== ENCOUNTER 2021-05-07 22:48 | Inpatient (IN) ==
[2021-05-07 23:41] LABS: ABS Eosinophils 0.3 10^3/ul (0-0.6); ABS Lymphocytes 3.3 10^3/ul (1.0-4.8); ABS Monocytes 0.9 10^3/ul (0-0.8); ABS Neutrophils 6.7 10^3/ul (1.5-7.7); Eosinophil % 2.6 %; Hematocrit 39 % (35-47); Hemoglobin 13.3 g/dL (12.0-16.0); Lymphocyte % 29.5 %; Mean Corpuscular HGB Conc 34 g/dL (31-36); Mean Corpuscular Hemoglobin 29 pg (27-31); Mean Corpuscular Volume 87 fL (80-97); Mean Platelet Volume 7.9 fL (7.4-10.4); Platelet Count 325 10^3/uL (150-450); Red Blood Count 4.54 10^6 /uL (3.70-4.87); Red Cell Distribution Width 14 % (10-15); White Blood Count 11.2 10^3/uL (3.5-10.8)
[2021-05-07 23:46] LABS: Urine Appearance Cloudy; Urine Bilirubin Negative (Negative); Urine Blood Negative (Negative); Urine Color Yellow; Urine Glucose Negative (Negative); Urine Ketones Trace (Negative); Urine Nitrite Negative (Negative); Urine Protein 1+(30 mg/dL) (Negative); Urine Urobilinogen Negative (Negative)
[2021-05-07 23:47] LABS: Urine Bacteria Absent (Absent); Urine Red Blood Cell 2+(6-10/hpf) (Absent); Urine Squamous Epithelial Cell Present (Absent); Urine White Blood Cell Trace(0-5/hpf) (Absent)
[2021-05-07 23:58] LABS: ALT 8 U/L (7-52); AST 10 U/L (13-39); Albumin 4.1 g/dL (3.2-5.2); Albumin/Globulin Ratio 1.8 (1-3); Alkaline Phosphatase 56 U/L (35-149); Anion Gap 7 mmol/L (2-11); Blood Urea Nitrogen 19 mg/dL (6-24); CO2 Carbon Dioxide 24 mmol/L (22-32); Calcium 8.9 mg/dL (8.6-10.3); Chloride 107 mmol/L (101-111); EGFR African American 86.8 (>60); EGFR Non-African American 71.8 (>60); Globulin 2.3 g/dL (2-4); Glucose 109 mg/dL (70-100); Potassium 3.7 mmol/L (3.5-5.0); Sodium 138 mmol/L (135-145); Total Protein 6.4 g/dL (6.4-8.9)
[2021-05-08] LABS: Urine Benzodiazepine Screen None Detected (None Detect); Urine Cannabinoids Screen None Detected (None Detect); Urine Opiates Screen None Detected (None Detect)
[2021-05-08 00:14] LABS: Acetaminophen < 15 mcg/mL; Alcohol, S < 13 mg/dL (<13); Salicylate < 2.50 mg/dL (<30)
[2021-05-08 00:29] LABS: TSH Ultra Thyroid Stim Horm 1.43 mcIU/mL (0.34-5.60)
[2021-05-08 05:02] LABS: Rapid COVID-19 Molecular Undetected (Undetected)
[2021-05-08] MEDS ORDERED: Al Hydrox/Mg Hydrox/Simet LIQ 30 ML UDC PO PRN (10:08)
[2021-05-08] MEDS: Nicotine GUM 2MG FRUIT FLAVOR PO PRN ×4 (10:34→18:00)
[2021-05-08] MEDS: Nicotine PATCH 14 MG/24 HR PATCH TRANSDERM SCH (10:35)
[2021-05-08] MEDS ORDERED: Albuterol 2.5mg/3 ml (0.083%) NEB.SOLN INH PRN (12:39)
[2021-05-08] MEDS ORDERED: Albuterol HFA INHALER 8 gm MDI INH PRN (12:39)
[2021-05-08] MEDS: Estradiol 1 mg TAB (NF) PO SCH (16:02)
[2021-05-08] MEDS: Mometasone 220 MCG MDI INH SCH (19:35)
[2021-05-08] MEDS: TOFACITINIB CITRATE 11 MG PO SCH (20:04)
[2021-05-08] MEDS ORDERED: ERENUMAB AOOE 70 MG/ML SUBCUT SCH (21:00)
[2021-05-08] MEDS ORDERED: Mometasone/Formoter 100/5 MDI INH SCH (21:00)
[2021-05-08] MEDS ORDERED: UBRELVY 50 MG PO PRN (21:00)
[2021-05-08] MEDS ORDERED: AUTO INJCT SUBCUT SCH (21:00)
[2021-05-09] MEDS: Nicotine PATCH 14 MG/24 HR PATCH TRANSDERM SCH (08:02)
[2021-05-09] MEDS: Vitamin THERAPEUTIC TAB PO SCH (08:04)
[2021-05-09] MEDS: Cholecalciferol (VIT D3) 1,000 unit TAB PO SCH (08:06)
[2021-05-09] MEDS: Estradiol 1 mg TAB (NF) PO SCH (08:08)
[2021-05-09] MEDS: SPIRIVA Respimat (tiotropium) 2.5 mcg/inh Inhaler INH SCH (08:09)
[2021-05-09] MEDS: Nicotine GUM 2MG FRUIT FLAVOR PO PRN ×3 (08:59→15:19)
[2021-05-09] MEDS ORDERED: CMC:Estradiol 1 mg TAB (NF) PO SCH (09:00)
[2021-05-09] MEDS ORDERED: Flu vaccine *QUAD* 2021-22* 0.5 ML SYRINGE IM ONE (09:00)
[2021-05-09] MEDS ORDERED: TOFACITINIB CITRATE 11 MG PO SCH (09:00)
[2021-05-09] MEDS: Nicotine GUM 4MG FRUIT FLAVOR PO PRN (17:48)
[2021-05-09] MEDS: Mometasone 220 MCG MDI INH SCH (20:42)
[2021-05-09] MEDS: TOFACITINIB CITRATE 11 MG PO SCH (20:47)
[2021-05-10] MEDS: Cholecalciferol (VIT D3) 1,000 unit TAB PO SCH (08:27)
[2021-05-10] MEDS: Vitamin THERAPEUTIC TAB PO SCH (08:27)
[2021-05-10] MEDS: Estradiol 1 mg TAB (NF) PO SCH (08:30)
[2021-05-10] MEDS: SPIRIVA Respimat (tiotropium) 2.5 mcg/inh Inhaler INH SCH (08:30)
[2021-05-10] MEDS: Nicotine GUM 4MG FRUIT FLAVOR PO PRN ×4 (08:36→17:30)
[2021-05-10] MEDS: Mometasone 220 MCG MDI INH SCH (20:48)
[2021-05-10] MEDS: TOFACITINIB CITRATE 11 MG PO SCH (20:52)
[2021-05-11] MEDS: Vitamin THERAPEUTIC TAB PO SCH (07:55)
[2021-05-11] MEDS: Estradiol 1 mg TAB (NF) PO SCH (07:55)
[2021-05-11] MEDS: Cholecalciferol (VIT D3) 1,000 unit TAB PO SCH (07:55)
[2021-05-11] MEDS: SPIRIVA Respimat (tiotropium) 2.5 mcg/inh Inhaler INH SCH (07:57)
[2021-05-11] MEDS: Nicotine GUM 4MG FRUIT FLAVOR PO PRN ×5 (08:40→18:16)
[2021-05-11] MEDS: TOFACITINIB CITRATE 11 MG PO SCH (20:05)
[2021-05-11] MEDS: Mometasone 220 MCG MDI INH SCH (20:05)
[2021-05-12] MEDS: SPIRIVA Respimat (tiotropium) 2.5 mcg/inh Inhaler INH SCH (08:00)
[2021-05-12] MEDS: Cholecalciferol (VIT D3) 1,000 unit TAB PO SCH (08:01)
[2021-05-12] MEDS: Estradiol 1 mg TAB (NF) PO SCH (08:03)
[2021-05-12] MEDS: Vitamin THERAPEUTIC TAB PO SCH (08:03)
[2021-05-12] MEDS: Nicotine GUM 4MG FRUIT FLAVOR PO PRN ×4 (08:46→18:03)
[2021-05-12] MEDS: Mometasone 220 MCG MDI INH SCH (20:02)
[2021-05-12] MEDS: TOFACITINIB CITRATE 11 MG PO SCH (20:03)
[2021-05-13] MEDS: Nicotine GUM 4MG FRUIT FLAVOR PO PRN ×5 (06:18→17:36)
[2021-05-13] MEDS: SPIRIVA Respimat (tiotropium) 2.5 mcg/inh Inhaler INH SCH (07:59)
[2021-05-13] MEDS: Cholecalciferol (VIT D3) 1,000 unit TAB PO SCH (08:00)
[2021-05-13] MEDS: Estradiol 1 mg TAB (NF) PO SCH (08:00)
[2021-05-13] MEDS: Vitamin THERAPEUTIC TAB PO SCH (08:02)
[2021-05-13] MEDS: Mometasone 220 MCG MDI INH SCH (20:02)
[2021-05-13] MEDS: TOFACITINIB CITRATE 11 MG PO SCH (20:02)
[2021-05-14 08:11] LABS: HDL Cholesterol 46.9 mg/dL
[2021-05-14] MEDS: SPIRIVA Respimat (tiotropium) 2.5 mcg/inh Inhaler INH SCH (08:40)
[2021-05-14] MEDS: Cholecalciferol (VIT D3) 1,000 unit TAB PO SCH (08:45)
[2021-05-14] MEDS: Vitamin THERAPEUTIC TAB PO SCH (08:47)
[2021-05-14] MEDS: Nicotine GUM 4MG FRUIT FLAVOR PO PRN ×4 (08:48→17:30)
[2021-05-14] MEDS: Estradiol 1 mg TAB (NF) PO SCH (09:39)
[2021-05-14] MEDS: Mometasone 220 MCG MDI INH SCH (20:41)
[2021-05-14] MEDS: TOFACITINIB CITRATE 11 MG PO SCH (20:41)
[2021-05-15] MEDS: Nicotine GUM 4MG FRUIT FLAVOR PO PRN ×6 (04:36→17:40)
[2021-05-15] MEDS: Cholecalciferol (VIT D3) 1,000 unit TAB PO SCH (08:25)
[2021-05-15] MEDS: Estradiol 1 mg TAB (NF) PO SCH (08:27)
[2021-05-15] MEDS: SPIRIVA Respimat (tiotropium) 2.5 mcg/inh Inhaler INH SCH (08:28)
[2021-05-15] MEDS: Vitamin THERAPEUTIC TAB PO SCH (08:29)
[2021-05-15] MEDS: TOFACITINIB CITRATE 11 MG PO SCH (20:21)
[2021-05-15] MEDS: Mometasone 220 MCG MDI INH SCH (21:16)
[2021-05-16] MEDS: Nicotine GUM 4MG FRUIT FLAVOR PO PRN ×6 (04:24→17:57)
[2021-05-16] MEDS: SPIRIVA Respimat (tiotropium) 2.5 mcg/inh Inhaler INH SCH (08:43)
[2021-05-16] MEDS: Estradiol 1 mg TAB (NF) PO SCH (08:44)
[2021-05-16] MEDS: Cholecalciferol (VIT D3) 1,000 unit TAB PO SCH (08:45)
[2021-05-16] MEDS: Vitamin THERAPEUTIC TAB PO SCH (08:47)
[2021-05-16] MEDS: Mometasone 220 MCG MDI INH SCH (20:36)
[2021-05-16] MEDS: TOFACITINIB CITRATE 11 MG PO SCH (20:40)
[2021-05-17] MEDS: SPIRIVA Respimat (tiotropium) 2.5 mcg/inh Inhaler INH SCH (08:57)
[2021-05-17] MEDS: Cholecalciferol (VIT D3) 1,000 unit TAB PO SCH (08:58)
[2021-05-17] MEDS: Estradiol 1 mg TAB (NF) PO SCH (08:58)
[2021-05-17] MEDS: Vitamin THERAPEUTIC TAB PO SCH (09:00)
[2021-05-17] MEDS: Nicotine GUM 4MG FRUIT FLAVOR PO PRN ×5 (09:01→17:51)
[2021-05-17] MEDS: TOFACITINIB CITRATE 11 MG PO SCH (20:00)
[2021-05-17] MEDS: Mometasone 220 MCG MDI INH SCH (20:00)
[2021-05-18] MEDS: Cholecalciferol (VIT D3) 1,000 unit TAB PO SCH (07:50)
[2021-05-18] MEDS: SPIRIVA Respimat (tiotropium) 2.5 mcg/inh Inhaler INH SCH (07:51)
[2021-05-18] MEDS: Vitamin THERAPEUTIC TAB PO SCH (07:52)
[2021-05-18] MEDS: Estradiol 1 mg TAB (NF) PO SCH (07:55)
[2021-05-18] MEDS: Nicotine GUM 4MG FRUIT FLAVOR PO PRN ×4 (07:56→14:03)
[2021-05-18 08:23] VITALS: BP 130/69
== END 2021-05-18 17:30 | disposition home or self-care (01) | DRG 885 ==
LOC: ED 22:48 → BSU 05-08 05:23
PROVIDERS: ADMIT Psychiatry & Neurology Psychiatry; ATTEND Psychiatry & Neurology Psychiatry